=== PATIENT | female | born 1985 | race Caucasian/White ===

== ENCOUNTER → 2018-01-19 16:30 | Outpatient (CLI) | payer OTHER, SELFPAY ==
[2018-01-20 14:07] LABS: Chlamydia Trachomatis by PCR Negative (Negative); Neisserai gonorrhoeae by PCR Negative (Negative); Probe Check PASS; Sample Adequacy Control PASS; Specimen Processing Control PASS
== END ==
PROVIDERS: Visit Provider Obstetrics & Gynecology
DX: Z11.3 Encounter for screening for infections with a predominantly sexual mode of transmission (principal)
CPT/HCPCS: 87491; 87591

== ENCOUNTER → 2018-02-12 11:39 | Outpatient (CLI) | payer OTHER, SELFPAY ==
[2018-02-12 14:11] LABS: Absolute Lymphocyte Count 1.36 X10^3/ul (0.83-4.51); Absolute Neutrophil Count 3.1 X10^3/uL (2.0-7.7); Basophil# 0.01 X10^3/uL; Basophil% 0.2 % (0-1); Eosinophil# 0.05 X10^3/uL; Hematocrit 37.7 % (37-47); Hemoglobin 12.5 g/dl (12.0-15.0); Lymphocyte # 1.36 X10^3/ul (4.0); Lymphocyte % 28.2 % (19-41); Mean Corp Hgb Conc 33.2 g/gl (32-36); Mean Corpuscular Hgb 29.3 pg (27.0-32.0); Mean Corpuscular Volume 88.3 fL (81-99); Mean Platelet Vol. 11.4 fl (6.2-12.0); Monocyte# 0.29 X10^3/uL; Neutrophil # 3.11 X10^3/uL (2.7-7.7); Neutrophil % 64.6 % (47-70); POSITIVE COUNT NO; POSITIVE DIFFERENTIAL NO; POSITIVE MORPHOLOGY NO; Platelet Count 203 K/mm3 (150-450); RBC Distribution Width CV 12.5 % (11.6-14.6); RBC Distribution Width SD 39.6 fl (35.1-43.9); Red Blood Count 4.27 M/mm3 (4.2-5.4); White Blood Count 4.8 K/mm3 (4.4-11.0)
[2018-02-12 14:19] LABS: Color, Urine Yellow (Yellow); Glucose, Dipstick Normal (Normal); Ketone-Dipstick Negative (Negative); Leukocyte Esterase-Dipstick 25 /ul (Negative); Nitrite-Dipstick Negative (Negative); Occult Blood-Urine Negative /ul (Negative); Protein-Dipstick Negative (Negative); Urine Bilirubin Dipstick Negative (Negative); Urine Clarity Clear (Clear); Urine Urobilinogen Normal (Normal); Urine pH 6.5 (5.0 - 8.0)
[2018-02-12 14:43] LABS: Thyroid Stim Hormone (TSH) 0.54 uIU/mL (0.358-3.74)
[2018-02-12 15:12] LABS: HIV - WCH Non-Reactive (Nonreactive); Rubella IgG 44.4 IU/mL
[2018-02-13 09:18] LABS: HEPATITIS B SURFACE AG Negative (Negative); Hep C Antibodies <0.1 s/co ratio (0.0-0.9)
[2018-02-19 02:32] LABS: Prenatal RPR NONREACTIVE (NONREACTIVE)
--- OUTSIDE RECORDS SUMMARY | 2018-04-09 10:29 | XMS RPT_ITS ---
:1985 Author Organization OHIP Care Team Providers Name Role Phone Miguel Rowley Attending Unavailable Luana Beebe Attending Unavailable PROBLEMS PROBLEMS DATE TYPE CONDITION / CODE ATTENDING STATUS SOURCE 02/12/2018 Unknown Z34.81 - Encounter Luana Beebe Active [place] for supervision of Community other normal Hospital , first Repository trimester / Z34.81(ICD-10) 01/20/2018 Unknown Z11.3 - Encounter Miguel Rowley Active [place] for screening for Community infections with a Hospital [facility] Repository sexual mode of transmission / Z11.3(ICD-10) PROCEDURES PROCEDURES No Procedure Records FoundRESULTS RESULTS CBC W/DIFF, AUTOMATED Collected: 02/12/2018 Status: F Source[facility] [place] [facility] TYPE CODE TESTS RESULT OUT OF RANGE REFERENCE UNITS LAB L100.1000 4.4-11.0 K/mm3 Normal WBC 4.8 LAB L100.1200 4.2-5.4 M/mm3 Normal RBC 4.27 LAB L100.1300 12.0-15.0 g/dl Normal HGB 12.5 LAB L100.1400 37-47 % Normal HCT 37.7 LAB L100.1500 81-99 fL Normal MCV 88.3 LAB L100.1600 27.0-32.0 pg Normal MCH 29.3 LAB L100.1700 32-36 g/gl Normal MCHC 33.2 LAB L100.1810 11.6-14.6 % Normal RDW CV 12.5 LAB L100.1820 35.1-43.9 fl Normal RDW SD 39.6 LAB L100.1900 150-450 K/mm3 Normal PLT 203 LAB L100.2000 6.2-12.0 fl Normal MPV 11.4 LAB L100.2100 47-70 % Normal NEUT% 64.6 LAB L100.2200 19-41 % Normal LY% 28.2 LAB L100.2300 0-10 % Normal MONO% 6.0 LAB L100.2400 0-5 % Normal EO% 1.0 LAB L100.2500 0-1 % Normal BASO% 0.2 LAB L100.2550 0.0-0.9 % Normal IM GRAN % 0.000 Result Comment: IG% - Immature Granulocytes (promyelocytes, myelocytes and metamyelocytes) > 1% indicates that a LEFT SHIFT is Present. LAB L100.2620 2.0-7.7 X10 3/uL Normal Absolute Neut 3.1 LAB L100.2720 0.83-4.51 X10 3/ul Normal Absolute Lymph 1.36 Performed By: #### L100.0100 #### [facility] [address] [place] [address]. [place], [address] URINALYSIS, ROUTINE Collected: 02/12/2018 Status: F Source: [place] (DIPSTICK) 11:41 AM [facility] REPOSITORY Order Comment: How was Urine Obtained? Urine, Random TYPE CODE TESTS RESULT OUT OF RANGE REFERENCE UNITS LAB L400.3000 Yellow COLOR Normal Yellow LAB L400.3050 Clear Normal CLARITY Clear LAB L400.3200 Normal mg/dl Normal GLUCOSE, UR Normal LAB L400.3300 Negative mg/dL Normal BILIRUBIN URINE Negative LAB L400.3400 Negative mg/dl Normal KETONE UR Negative LAB L400.3465 1.002-1.030 Normal SP.GR. DIPSTX 1.010 LAB L400.3550 5.0 - 8.0 pH UR Normal 6.5 LAB L400.3600 Negative mg/dl PROT Normal DIPSTX Negative LAB L400.3700 Normal mg/dl Normal UROBILI Normal LAB L400.3750 Negative Normal NITRITE UR Negative LAB L400.3780 Negative /ul Normal OCCULT BLOOD-UR Negative LAB L400.3800 Negative /ul High LEUK 25 ESTERASE Performed By: #### L400.2010 #### [facility] [address] [place], [address] THYROID STIM HORMONE Collected: 02/12/2018 Status: F Source: [place] (TSH) 11:41 AM [facility] REPOSITORY TYPE CODE TESTS RESULT OUT OF RANGE REFERENCE UNITS LAB L501.9520 0.358-3.74 uIU/mL Normal TSH 0.54 Performed By: #### L501.9520 #### [facility] [address] [facility] [facility] [address] RUBELLA IGG Collected: 02/12/2018 Status: F Source: [place] 11:41 AM [facility] REPOSITORY TYPE CODE TESTS RESULT OUT OF RANGE REFERENCE UNITS LAB L509.4000 IU/mL Normal Rubella IgG 44.4 Result Comment: Antibody results Interpretation of Immune Status < 5 IU/ml Presumed Non-immune 5 - < 10 IU/ml Equivocal > or = 10 IU/ml Presumed Immune Performed By: #### L509.4000, L3890.6005 #### [facility] [address] [place], [address] HIV - [facility] Collected: 02/12/2018 Status: F Source: [place] 11:41 AM [facility] REPOSITORY TYPE CODE TESTS RESULT OUT OF RANGE REFERENCE UNITS LAB L3890.6005 Nonreactive Normal HIV - [facility] Non-Reactive Performed By: #### L509.4000, L3890.6005 #### [facility] [address] [place], [address] T AND S-NO Collected: 02/12/2018 Status: F Source: [place] CHARGE W/PNP 11:41 AM [facility] REPOSITORY Order Comment: Reason for Type AND Screen/Red Cells: Surgery? N TYPE CODE TESTS RESULT OUT OF RANGE REFERENCE UNITS LAB B10.0800 O Normal BLOOD POSITIVE TYPE GEL LAB B100.4050 Normal Ab SCREEN NEGATIVE GEL Performed By: #### B100.7550 #### [facility] [address] [place], [place], [id number] HEPATITIS B SURFACE Collected: 02/12/2018 Status: F Source: [place] AG 11:41 AM [facility] REPOSITORY TYPE CODE TESTS RESULT OUT OF RANGE REFERENCE UNITS LAB L3100.0400 Negative Normal HB Negative SURF AG Result Comment: Performed at: [facility] [id number] Taxicab Starter: Vic Rivera PhD, Phone: [phone] Performed By: #### L3100.0390, L3100.0625 #### [facility] (refer to report for specific site) refer to report for address and phone number HEPATITIS C ANTIBODIES Collected: 02/12/2018 Status: F Source: [place] 11:41 AM [facility] REPOSITORY TYPE CODE TESTS RESULT OUT OF RANGE REFERENCE UNITS LAB L3100.0650 0.0-0.9 s/co ratio Normal HEP C AB <0.1 Result Comment: Negative: < 0.8 Indeterminate: 0.8 - 0.9 Positive: > 0.9 The CDC recommends that a positive HCV antibody result be followed up with a HCV Nucleic Acid Amplification test (010513). Performed By: #### L3100.0390, L3100.0625 #### [facility] (refer to report for specific site) refer to report for address and phone number RPR Collected: 02/12/2018 Status: F Source: [place] 11:41 AM [facility] REPOSITORY TYPE CODE TESTS RESULT OUT OF REFERENCE UNITS RANGE LAB L700.5100 NONREACTIVE Normal RPR NONREACTIVE Performed By: #### L700.5100 #### [facility] [address] [place], [place], [address] CT/NG [facility] BY PCR Collected: 01/19/2018 Status: F Source: [place] 4:30 PM [facility] REPOSITORY TYPE CODE TESTS RESULT OUT OF RANGE REFERENCE UNITS LAB L8200.2100 Negative Normal Chlam Negative Trac PCR LAB L8200.2200 Negative Normal NG by Negative PCR Performed By: #### L8200.2000 #### [facility] [address] [place], [address] ALLERGIES ALLERGIES DATE TYPE / CODE NAME / CODE REACTION SEVERITY SOURCE 08/21/2016 Drug No Known Unknown [facility] Allergy/4160 Allergies/F00 Hospital 00100(SNOMED [id number](RXNOR Repository CT) M) ENCOUNTERS ENCOUNTERS ADMIT/DISCHARGE ACCOUNT ADMITTING ENCOUNTER LOCATION SOURCE NUMBER CLASS 02/12/2018 [id number] Ambulatory [facility] [place] 2 [facility] ing:WOBLAB Repository 01/19/2018 [id number] Ambulatory [place] Felda 6 [facility] ing:LABSPEC Repository PAYERS PAYERS ENCOUNTER GUARANTOR PAYER SUBSCRIBER SOURCE 02/12/2018 Lisa Primary Lisa Felda [id number] Insurance:[facility] [facility] [place]: [id number] [id number] Repository [address]Udt: (330) Date:9146-23-17PP [phone] () [address] [address]IM: 02/12/2018 Secondary NOT GIVENUNK Felda Insurance:SELF PAY [facility] Number: Effective Repository Date:2018-02-12 01/19/2018 Lisa Primary Lisa [place] [id number] [facility] ic Number: [id number] [id number] Repository [address]Kvv: (330) Date:5033-83-20JY [phone] () [address] [address]IF: 01/19/2018 Secondary NOT GIVENUNK Felda Insurance:SELF PAY [facility] Number: Effective Repository Date:2018-01-19
== END ==
PROVIDERS: Visit Provider Obstetrics & Gynecology
DX: Z34.81 Encounter for supervision of other normal pregnancy, first trimester (principal)
CPT/HCPCS: 36415; 81002; 84443; 85025; 86703; 86762; 86803; 87340

== ENCOUNTER → 2018-07-19 17:58 | Outpatient (CLI) | payer OTHER, SELFPAY ==
[2016-08-21 23:37] VITALS: BMI 29.9
== END ==
PROVIDERS: Referring Provider Obstetrics & Gynecology; Visit Provider Obstetrics & Gynecology
DX: Z36.85 Encounter for antenatal screening for Streptococcus B (principal)
CPT/HCPCS: 87081

== ENCOUNTER 2018-08-23 16:24 | Outpatient (CLI) | payer OTHER, SELFPAY ==
[2018-08-23 17:17] VITALS: BMI 30.4
--- NOTE | 2018-08-23 21:54 | OB.TRI.NOTE ---
History of Present Illness Was patient seen by the physician?: Yes Reason For Visit: R/O LABOR Date of Service: 08/23/18 Final VERONICA: 08/21/18 Final VERONICA Source: US <20 weeks Gestational age: 40 Weeks and 2 Days History of Present Illness: 40+ week intrauterine with contractions. Decided to come in as she thought she was in labor. Allergies No Known Allergies Allergy (Verified 08/23/18 17:19) NST - FHR Rate Baby A NST Reactive:: Yes FHR Category:: Category I Impression/Plan 40+ week intrauterine with false labor. Reactive nonstress test. No change in cervix after monitoring for several hours. Offered patient to stay for induction but she declines and will come back later this week for induction if she has not delivered by then. Patient lives about [place] hour away in [place].
== END 2018-08-23 18:15 | disposition home or self-care (01) ==
LOC: WPOUT 16:58 → WP 16:59
PROVIDERS: Referring Provider Obstetrics & Gynecology; Visit Provider Obstetrics & Gynecology
DX: O47.1 False labor at or after 37 completed weeks of gestation (principal); Z3A.40 40 weeks gestation of pregnancy
CPT/HCPCS: 59025; 59050; 99218; G0378

== ENCOUNTER 2018-08-28 23:50 | Inpatient (IN) | payer OTHER, SELFPAY ==
[2018-08-28 23:20] VITALS: BMI 29.3
[2018-08-28 23:46] LABS: ROM Internal Control Test YES-OK TO RESULT pt. (Internal QC)
[2018-08-28 23:47] LABS: ROM Patient Test POSITIVE (Negative)
[2018-08-29] MEDS: Lactated Ringers 1,000 ML 50 ML IV ×2 (00:10→01:30)
[2018-08-29 00:36] LABS: Absolute Lymphocyte Count 1.69 X10^3/ul (0.83-4.51); Absolute Neutrophil Count 4.3 X10^3/uL (2.0-7.7); Basophil# 0.01 X10^3/uL; Basophil% 0.2 % (0-1); Eosinophil# 0.05 X10^3/uL; Eosinophils% 0.8 % (0-5); Hematocrit 33.7 % (37-47); Hemoglobin 11.1 g/dl (12.0-15.0); Lymphocyte # 1.69 X10^3/ul (4.0); Lymphocyte % 25.5 % (19-41); Mean Corp Hgb Conc 32.9 g/gl (32-36); Mean Corpuscular Hgb 28.8 pg (27.0-32.0); Mean Corpuscular Volume 87.3 fL (81-99); Mean Platelet Vol. 12.6 fl (6.2-12.0); Monocyte# 0.57 X10^3/uL; Monocyte% 8.6 % (0-10); Neutrophil # 4.29 X10^3/uL (2.7-7.7); Neutrophil % 64.7 % (47-70); Platelet Count 110 K/mm3 (150-450); RBC Distribution Width SD 44.2 fl (35.1-43.9); Red Blood Count 3.86 M/mm3 (4.2-5.4); White Blood Count 6.6 K/mm3 (4.4-11.0)
[2018-08-29] MEDS: 0.9% Saline Lock 10 ML Syringe IV (00:36)
[2018-08-29] MEDS: Ondansetron 4 MG/2 ML Vial IV (00:36)
[2018-08-29 00:37] LABS: POSITIVE COUNT NO; POSITIVE DIFFERENTIAL NO; POSITIVE MORPHOLOGY NO
[2018-08-29] MEDS: fentaNYL-bupivacaine (epidural) 100 ML BAG EPIDURAL (01:32)
[2018-08-29] MEDS: Oxytocin 30 units/NS 500 ml 30 UNITS/500 ML IV.SOLN 334 UNITS IV (02:37)
--- NOTE | 2018-08-29 02:49 | HP.PCM_ITS ---
- Problem List (1) Active labor at term Status: Acute History Date of Admission: 08/29/18 Final VERONICA: 08/21/18 Final VERONICA Source: US <20 weeks Gestational age: 41 Weeks and 1 Days History of this : This is a 33 year-old, , at 41 weeks gestational age presents IAL with SROM clear fluid she denies any significant vaginal bleeding and admits good movement. She has had an uncomplicated . Allergies No Known Allergies Allergy (Verified 08/28/18 23:25) Home Medications: Home Medications Vits [Prenatabs FA] 1 tablet PO DAILY 03/21/15 Ferrous Sulfate 325 mg PO 08/23/18 Smoking Status: Never smoker Alcohol: None Number of Fetus(es): 1 Heart Tracin moderate variability reactive no decelerations category I tracing [place]: regular History Past Pregnancies: Past Pregnancies 2 previous term vaginal delivery 7 pounds 3 ounces and 7 pounds 6 ounces, epidural, vacuum delivery with second Labs: Mom's Labs & Results 08/28/18 08/29/18 08/29/18 23:25 00:10 00:10 WBC 6.6 RBC 3.86 L Hgb 11.1 L Hct 33.7 L MCV 87.3 MCH 28.8 MCHC 32.9 RDW 14.0 RDW Differential 44.2 H Plt Count 110 L MPV 12.6 H Immature Gran % (Auto) 0.200 Neut % (Auto) 64.7 Lymph % (Auto) 25.5 [place] % (Auto) 8.6 Eos % (Auto) 0.8 Baso % (Auto) 0.2 Absolute Neuts (auto) 4.3 Absolute Lymphs (auto) 1.69 Total Counted Not Reportable Vag Amniotic Fld Detect POSITIVE H Blood Type O POSITIVE Antibody Screen NEGATIVE Course Did the patient receive Yes care? Labs Blood Type: O RH: POSITIVE RPR/VDRL/Syphilis Nonreactive Rubella status Immune HbSAg Negative Date Done: 02/12/18 Chlamydia Negative Gonorrhea Negative HIV/AIDS Non-Reactive Group B Strep: Negative Current Obstetrical History Gestational Diabetes No Incompetent Cervix No Infertility No IUGR No Macrosomia No Hypertension/Pre-eclampsia No Placenta Previa/Abruption No PTL/PROM No Uterine anomaly No Oligohydramnios No Polyhydramnios No Multiple gestation No Past Medical History Asthma No Diabetes No Hypertension No Heart disease No Mitral valve prolapse No Neurologic/Seizure disorder/ No Migraines Kidney disease No Liver disease No Varicosities No Clotting disorders/Hx of DVT No Thyroid Dysfunction No Other medical diseases No Psychiatric disorders No Major trauma No Abnormal PAP smear No Sleep apnea No Mammogram in the last 2 years No Social History Marital Status: Alleged father Reji Hx Smoking No Smoking Status Never smoker Expected Delivery Method: Spontaneous Vaginal Review of Systems Constitutional: Denies: Fever, Malaise Eyes: Denies: Blurred vision, Vision Change HEENT: Denies: Head Aches, Visual Changes Cardiovascular: Denies: Chest Pain, Palpitations Respiratory: Denies: Cough, Shortness of Breath, Wheezing Gastrointestinal: Denies: Abdominal Pain, Diarrhea, Nausea, Vomiting Genitourinary: Denies: Dysuria, Hematuria Musculoskeletal: Denies: Joint Pain, Muscle pain Skin: Denies: Lesions, Rash Neurological: Denies: Blurred vision, Focal weakness, Headaches Psychiatric: Denies: Anxiety, Depression Endocrine: Denies: Heat/ Cold Intolerance Hematologic/ Lymphatic: Denies: Easy Bruising, Easy Bleeding Physical Exam General: Alert, Cooperative, No apparent distress HEENT: Atraumatic, Normocephalic. Negative for: Thyromegaly, Lymphadenopathy Cardiovascular: Regular rate Lungs: Normal air movement Abdomen: Soft, Non Tender, Gravid Neurological: Deep Tendon Reflexes 2+/4 and Symmetrical, Neuro grossly intact. Negative for: Clonus [employer] PRINT SHOP: Normal external genitalia. Negative for: Vulvar lesions Estimated gestational size: Appropriate for gestational size Presentation: Cephalic Cervix Dilation (cm): 4 Assessment/Plan All Active Problems Active labor at term (Acute) This is a 33 year-old, at 41 weeks gestational age resents in active labor with spontaneous rupture of membranes GBS negative, epidural for anesthesia, expectant management for vaginal
--- NOTE | 2018-08-29 02:49 | PCM.OPRPT ---
Problem List (1) Active labor at term Status: Acute Vaginal Delivery Maternal Presentation: Active Labor, Spontaneous Rupture of Membranes 33 yo ial srom clear fluid 41 weeks Amniotic Fluid Description: Clear Final VERONICA: 08/21/18 Gestational age: 41 Weeks and 1 Days Date of Procedure: 08/29/18 Pre-Operative Diagnosis: ial Post-Operative Diagnosis: same Surgery/ Procedure Performed: Spontaneous Vaginal Delivery Type of Anesthesia: Epidural Description of Procedure: Patient began pushing and delivered the head in the MAXIMILIAN presentation. The head was delivered atraumatically . The anterior and posterior shoulders delivered without complication followed by the rest of the and the infant was placed on the maternal abdomen. Delayed cord clamping was employed for approximately 60 seconds. Cord was clamped and cut and gentle traction was applied to the cord and the placenta delivered spontaneously immediately following it was noted to be intact with three-vessel cord but with a significant membranous insertion. The perineum and vagina were inspected and noted to have no laceration. EBL was 200 cc. Patient and tolerated delivery well. Presentation: MAXIMILIAN Placental Delivery Description: Spontaneous Placenta Disposition: [facility] Cord Vessel Description: 3 Vessels Cord Entanglement: None Estimated Blood Loss: 200 A gender: Male (1 minute): 9 (5 minute): 10 Episiotomy Description: None Laceration: None Medications given after delivery: IV Pitocin Complications: None
[2018-08-29] MEDS: Oxytocin 30 units/NS 500 ml 30 UNITS/500 ML IV.SOLN 167 UNITS IV (03:07)
[2018-08-29] MEDS: Naproxen 250 MG Tablet 500 MG PO ×2 (05:50→16:02)
--- NOTE | 2018-08-29 05:55 | NURSING ---
Epidural cath removed blue tip intact
[2018-08-29 07:43] VITALS: BP 111/68; PULSE 63; RESP 16; TEMP 36.6; O2SAT 99
[2018-08-29] MEDS: Acetaminophen 500 MG Tablet 1000 MG PO ×2 (11:31→19:36)
[2018-08-29 11:33] VITALS: BP 132/72; PULSE 77; RESP 16; TEMP 36.2; O2SAT 99
[2018-08-29 16:06] VITALS: BP 122/72; PULSE 68; RESP 16; TEMP 36.7; O2SAT 99
[2018-08-29 19:45] VITALS: BP 120/86; PULSE 72; RESP 16; TEMP 36.8; O2SAT 97
[2018-08-30] MEDS: Naproxen 250 MG Tablet 500 MG PO ×2 (00:18→09:51)
[2018-08-30 03:29] VITALS: BP 116/77; PULSE 75; RESP 16; TEMP 36.8
[2018-08-30 08:00] VITALS: BP 134/79; PULSE 90; RESP 16; TEMP 36.6
--- NOTE | 2018-08-30 11:03 | PCM.PN.OB ---
Patient Problems: Active and Suspected Problems Active labor at term (Acute) Subjective: doing well no complaints - Physical Exam General: Alert, Oriented x3 Vital Signs Temp Pulse Resp BP Pulse Ox 97.9 F 90 16 134/79 H 97 08/30/18 08:00 08/30/18 08:00 08/30/18 08:00 08/30/18 08:00 08/29/18 19:45 Oxygen Delivery Method Room Air Weight: 199 lb Body Mass Index (BMI) 29.3 Intake and Output for Last 24 Hours 08/28/18 08/29/18 08/30/18 23:59 23:59 23:59 Output Total 625 / 625 Balance -625 / -625 Medical Necessity - Tobacco Use Smoking Status: Never smoker Assessment/Plan All Active Problems Active labor at term (Acute) s/p PPD # 1 1. routine post delivery care 2. breast feeding- support given dc home
--- NOTE | 2018-08-30 11:05 | DCINST_ITS ---
Discharge Diet: No Restrictions Discharge Activity: Return to Normal Activity, May not drive while taking narcotic pain medications., May Shower May resume sexual activity in: 4-6 weeks Call your doctor if your incision/area has: Continuous Slow Oozing, Sudden Increased Bleeding, Increased Pain/ Swelling, Increased Redness, Foul Smelling Discharge Additional Instructions: If you experience any of the following, contact your healthcare provider. * Bleeding that soaks a pad every hour for 2 hours * Fever 100.4 or higher * Unrelieved incision or abdominal pain * Swelling, redness, discharge or bleeding from your incision or episiotomy site * Your incision begins to separate * Problems urinating (including inability to urinate or burning while urinating). * Visual changes * Severe headache * Flu-like symptoms * Pain or redness in one of both of your breasts * Pain, warmth, tenderness or swelling in your legs, especially the calf area * Frequent nausea and vomiting * Symptoms of depression or anxiety If you experience any of the following, call 911 or go to the nearest Emergency Room. * Chest pain * Problems breathing * Seizure activity * Partial or complete paralysis of a body part, slurred speech, weakness or drooping of the face, or a sudden inability to walk or hold your balance Allergies/Adverse Reactions: Allergies No Known Allergies Allergy (Verified 08/28/18 23:25) Medications to take at Discharge Vits [Prenatabs FA] 1 tablet PO DAILY 03/21/15 Ferrous Sulfate 325 mg PO 08/23/18 Please Follow Up With: Radha Abdi MD - [phone] When: Call to make an appointment with your doctor in 6 weeks. If you had elevated Blood pressure or 4th degree laceration you will need to be seen in 2 weeks. Test Results: Test results from this visit will be discussed in further detail at your follow- up appointment, if applicable.
--- NOTE | 2018-08-30 11:05 | PCM.DCVAG ---
Discharge Diet: No Restrictions Discharge Activity: Return to Normal Activity, May not drive while taking narcotic pain medications., May Shower May resume sexual activity in: 4-6 weeks Call your doctor if your incision/area has: Continuous Slow Oozing, Sudden Increased Bleeding, Increased Pain/ Swelling, Increased Redness, Foul Smelling Discharge Additional Instructions: If you experience any of the following, contact your healthcare provider. Bleeding that soaks a pad every hour for 2 hours Fever 100.4 or higher Unrelieved incision or abdominal pain Swelling, redness, discharge or bleeding from your incision or episiotomy site Your incision begins to separate Problems urinating (including inability to urinate or burning while urinating). Visual changes Severe headache Flu-like symptoms Pain or redness in one of both of your breasts Pain, warmth, tenderness or swelling in your legs, especially the calf area Frequent nausea and vomiting Symptoms of depression or anxiety If you experience any of the following, call 911 or go to the nearest Emergency Room. Chest pain Problems breathing Seizure activity Partial or complete paralysis of a body part, slurred speech, weakness or drooping of the face, or a sudden inability to walk or hold your balance Allergies/Adverse Reactions: Allergies No Known Allergies Allergy (Verified 08/28/18 23:25) Medications to take at Discharge Vits [Prenatabs FA] 1 tablet PO DAILY 03/21/15 Ferrous Sulfate 325 mg PO 08/23/18 Please Follow Up With: Radha Abdi MD - [phone] When: Call to make an appointment with your doctor in 6 weeks. If you had elevated Blood pressure or 4th degree laceration you will need to be seen in 2 weeks. Test Results: Test results from this visit will be discussed in further detail at your follow-up appointment, if applicable.
[2018-08-30 12:53] VITALS: BP 116/70; PULSE 70; RESP 16; TEMP 36.6
== END 2018-08-30 13:00 | disposition home or self-care (01) | DRG 807 ==
LOC: WPOUT 23:51
PROVIDERS: Admitting Provider Obstetrics & Gynecology; Referring Provider Obstetrics & Gynecology; Visit Provider Obstetrics & Gynecology
DX: O48.0 Post-term pregnancy (principal); Z37.0 Single live birth; Z3A.41 41 weeks gestation of pregnancy
CPT/HCPCS: 59025; 59050; 84112; 85025; 86850; 86900; 99218; J7120; A4216; G0378; J2405

== ENCOUNTER → 2018-10-11 14:00 | Outpatient (CLI) | payer OTHER, SELFPAY ==
[2018-10-14 15:47] LABS: HPV Reflexed? NOT INDICATED
== END ==
PROVIDERS: Visit Provider Obstetrics & Gynecology
DX: Z12.4 Encounter for screening for malignant neoplasm of cervix (principal)
CPT/HCPCS: 87624; 88175; G0145

== ENCOUNTER → 2019-10-28 15:15 | Outpatient (CLI) | payer OTHER, SELFPAY ==
--- NOTE | 2019-10-28 | LES_PTH ---
PATIENT: LANI STARR LOC: [facility] U#:[id number] AGE/SX: 39/F ROOM: RE10/28/[address]: Dr. Emeli Ponce MD : 1985 BED: DIS: SPEC #: [id number] RECD: 10/28/19 17:31 STATUS: [place] FILIPE #: [id number] RUSSEL: 10/28/19 00:[address]: Emeli Ponce DEPT: SURGICAL PATHOLOGY RECD BY: Bola Ford Tissues: Skin of leg, NOS Procedures: Surgery Specimen Level IV HEADER OPERATION: Skin lesion excision PRE-OP DIAGNOSIS: Skin lesions TISSUE SUBMITTED: Right thigh skin lesion MICROSCOPIC DIAGNOSIS Right thigh skin lesion, biopsy: Intradermal nevus extending up to the deep margin of the specimen. NGUYEN:heraclio 11/01/19 MICROSCOPIC DESCRIPTION Slides are reviewed. GROSS DESCRIPTION Received in fixative is one container labeled with the patient's name and designated right thigh. The specimen consists of a piece of fuentes-brown skin measuring 0.7 x 0.5 x 0.3 cm. The specimen is inked and submitted entirely in one cassette. It will be sectioned at the time of embedding. / NGUYEN:heraclio 10/31/19 TC:1 CPT: 61680
== END ==
PROVIDERS: PCP Family Medicine; Referring Provider Family Medicine; Visit Provider Family Medicine
DX: L98.9 Disorder of the skin and subcutaneous tissue, unspecified (principal)
CPT/HCPCS: 88305

== ENCOUNTER → 2019-11-22 15:53 | Outpatient (CLI) | payer OTHER, SELFPAY ==
--- NOTE | 2019-11-22 15:58 | US_ITS ---
STUDY: ULTRASOUND OF THE FEMALE PELVIS - COMPLETE REASON FOR EXAM: Female, 34 years old. PELVIC PAIN BILAT LMP: 06/20/2019 TECHNIQUE: Transabdominal and Transvaginal TECHNICAL QUALITY: Adequate. COMPARISON: None. FINDINGS: The uterus is anteverted and is in a midline position. The uterus measures 9.1 x 5.8 x 3.0 cm. Normal uterine cervix. The endometrium measures 7 mm in thickness, and is hyperechoic. There is no demonstrated endometrial mass. There is no demonstrated myometrial mass. I.U.D. - The patient does not have an I.U.D. The right ovary is visualized. The right ovary measures 2.6 x 1.9 x 1.9 cm. 1.3 cm solid appearing mass, possibly a fibroma or involuting cyst. There is no visualized right adnexal mass or complex lesion. There is normal arterial and normal venous vascularity. The left ovary is visualized. The left ovary measures 2.8 x 2.6 x 1.3 cm. There is no left ovarian cyst or ovarian mass. There is no visualized left adnexal mass or complex lesion. There is normal arterial and normal venous vascularity. There is no fluid in the cul-de-sac. The pre void volume of the bladder was 791 ml. US/Pelvic (Non ) IMPRESSION: Within normal limits. Electronically Signed: Duane Carbone MD at 22:25 EDT , Service support ,
--- NOTE | 2019-11-22 16:15 | US_ITS ---
STUDY: ULTRASOUND OF THE FEMALE PELVIS - COMPLETE REASON FOR EXAM: Female, 34 years old. PELVIC PAIN BILAT LMP: 06/20/2019 TECHNIQUE: Transabdominal and Transvaginal TECHNICAL QUALITY: Adequate. COMPARISON: None. FINDINGS: The uterus is anteverted and is in a midline position. The uterus measures 9.1 x 5.8 x 3.0 cm. Normal uterine cervix. The endometrium measures 7 mm in thickness, and is hyperechoic. There is no demonstrated endometrial mass. There is no demonstrated myometrial mass. I.U.D. - The patient does not have an I.U.D. The right ovary is visualized. The right ovary measures 2.6 x 1.9 x 1.9 cm. 1.3 cm solid appearing mass, possibly a fibroma or involuting cyst. There is no visualized right adnexal mass or complex lesion. There is normal arterial and normal venous vascularity. The left ovary is visualized. The left ovary measures 2.8 x 2.6 x 1.3 cm. There is no left ovarian cyst or ovarian mass. There is no visualized left adnexal mass or complex lesion. There is normal arterial and normal venous vascularity. There is no fluid in the cul-de-sac. The pre void volume of the bladder was 791 ml. US/Transvaginal Non- IMPRESSION: Within normal limits. Electronically Signed: Duane Carbone MD at 22:25 EDT , Service support ,
== END ==
PROVIDERS: PCP Family Medicine; Referring Provider Family Medicine; Visit Provider Family Medicine
DX: R10.9 Unspecified abdominal pain (principal)
CPT/HCPCS: 76830; 76856; 93976

== ENCOUNTER → 2020-02-14 15:29 | Outpatient (CLI) | payer OTHER, SELFPAY ==
[2020-02-14 17:35] LABS: Absolute Lymphocyte Count 1.72 X10^3/uL (0.83-4.51); Absolute Neutrophil Count 3.9 X10^3/uL (2.0-7.7); Basophil# 0.03 X10^3/uL; Basophil% 0.5 % (0-1); Eosinophil# 0.29 X10^3/uL; Eosinophils% 4.6 % (0-5); Hematocrit 39.3 % (37-47); Hemoglobin 12.7 g/dL (12.0-15.0); Lymphocyte # 1.72 X10^3/ul (4.0); Lymphocyte % 27.2 % (19-41); Mean Corp Hgb Conc 32.3 g/dL (32-36); Mean Corpuscular Volume 89.7 fL (81-99); Mean Platelet Vol. 11.8 fl (6.2-12.0); Monocyte# 0.41 X10^3/uL; Monocyte% 6.5 % (0-10); NRBC Flagged by Analyzer 0 % (0-5); Neutrophil # 3.85 X10^3/uL (2.7-7.7); Neutrophil % 60.9 % (47-70); Platelet Count 228 K/mm3 (150-450); RBC Distribution Width CV 12.1 % (11.6-14.6); RBC Distribution Width SD 39.4 fl (35.1-43.9); Red Blood Count 4.38 M/mm3 (4.2-5.4); White Blood Count 6.3 K/mm3 (4.4-11.0)
[2020-02-15 08:45] LABS: HIV - WCH Non-Reactive (Nonreactive); Hepatitis B Surface Antigen Non-Reactive (Nonreactive); Hepatitis C Antibody Non-Reactive (Nonreactive); Rubella IgG Reactive (Nonreactive)
[2020-02-16 02:17] LABS: Prenatal RPR NONREACTIVE (NONREACTIVE)
[2020-02-18 03:07] LABS: Chlamydia By Nucleic Acid AMP Negative (Negative)
[2020-02-20 04:28] LABS: Gonococcus By Nucleic Acid AMP Negative (Negative)
[2020-02-20 04:31] LABS: HPV APTIMA, High Risk Negative (Negative)
[2020-02-20 09:41] LABS: HPV Reflexed? YES, CHARGE PATIENT
== END ==
PROVIDERS: PCP Family Medicine; Visit Provider Obstetrics & Gynecology
DX: Z34.81 Encounter for supervision of other normal pregnancy, first trimester (principal); Z12.4 Encounter for screening for malignant neoplasm of cervix; Z11.3 Encounter for screening for infections with a predominantly sexual mode of transmission
CPT/HCPCS: 36415; 85025; 86703; 86762; 86803; 87086; 87340; 87491; 87591; 87624; 88175; G0145

== ENCOUNTER → 2020-07-03 09:10 | Outpatient (CLI) | payer OTHER, SELFPAY ==
[2020-07-03 10:56] LABS: Hematocrit 34.8 % (37-47); Hemoglobin 11.1 g/dL (12.0-15.0); Mean Corp Hgb Conc 31.9 g/dL (32-36); Mean Corpuscular Hgb 29.4 pg (27.0-32.0); Mean Corpuscular Volume 92.3 fL (81-99); Mean Platelet Vol. 11.2 fl (6.2-12.0); Platelet Count 149 K/mm3 (150-450); RBC Distribution Width CV 13.3 % (11.6-14.6); Red Blood Count 3.77 M/mm3 (4.2-5.4); White Blood Count 6.1 K/mm3 (4.4-11.0)
[2020-07-03 11:03] LABS: Glucose Challenge Gest 1H 50g 68 mg/dL (70-140)
== END ==
PROVIDERS: PCP Family Medicine; Visit Provider Student in an Organized Health Care Education/Training Program
DX: Z34.82 Encounter for supervision of other normal pregnancy, second trimester (principal)
CPT/HCPCS: 36415; 82950; 85027

== ENCOUNTER → 2020-09-05 09:23 | Outpatient (CLI) | payer OTHER, SELFPAY | PROVIDERS: PCP Family Medicine; Visit Provider Obstetrics & Gynecology | DX: Z36.85 Encounter for antenatal screening for Streptococcus B (principal) | CPT/HCPCS: 87081 ==

== ENCOUNTER 2020-09-29 06:55 | Inpatient (IN) | payer OTHER, SELFPAY ==
[2020-09-29] VITALS (46 sets, daily range): BP systolic 104–122; BP diastolic 53–81; PULSE 60–245; RESP 18; TEMP 36.3–36.4; O2SAT 81–100; BMI 31.0
[2020-09-29] MEDS: Lactated Ringers 1,000 ML 50 ML IV (07:10)
[2020-09-29 07:32] LABS: Absolute Lymphocyte Count 1.51 X10^3/uL (0.83-4.51); Absolute Neutrophil Count 4.5 X10^3/uL (2.0-7.7); Basophil# 0.03 X10^3/uL; Basophil% 0.5 % (0-1); Eosinophil# 0.14 X10^3/uL; Eosinophils% 2.1 % (0-5); Hematocrit 34.1 % (37-47); Hemoglobin 10.8 g/dL (12.0-15.0); Lymphocyte # 1.51 X10^3/ul (0.83-4.51); Lymphocyte % 22.7 % (19-41); Mean Corp Hgb Conc 31.7 g/dL (32-36); Mean Corpuscular Hgb 28.1 pg (27.0-32.0); Mean Corpuscular Volume 88.8 fL (81-99); Mean Platelet Vol. 11.3 fl (6.2-12.0); Monocyte# 0.47 X10^3/uL; Monocyte% 7.1 % (0-10); NRBC Flagged by Analyzer 0 % (0-5); Neutrophil # 4.46 X10^3/uL (2.7-7.7); Platelet Count 126 K/mm3 (150-450); RBC Distribution Width CV 13.1 % (11.6-14.6); RBC Distribution Width SD 42.3 fl (35.1-43.9); Red Blood Count 3.84 M/mm3 (4.2-5.4); White Blood Count 6.7 K/mm3 (4.4-11.0)
--- NOTE | 2020-09-29 09:11 | PCM.HP.OB ---
HPI - General General Date of Admission: 09/29/20 HPI Narrative LANI WISE, is a 35 F who presents with c/o contractions x 2 days. Maternal Data Information VERONICA Calculator Estimated Delivery Date Method Current WG Current Estimate 10/02/20 Ultrasound #1 39w 4d PFSH PFSH Medical History (Updated 09/29/20 @ 09:[address] Grace Love MD) Patient denies medical problems Home Medications vit,[id number] [Prenatabs FA] 1 tab PO DAILY 03/21/15 [History Last Taken 09/27/20] Allergy/AdvReac Type Severity Reaction Status Date / Time No Known Allergies Allergy Verified 09/29/20 04:20 Family History Father Hypertension Grandfather Cancer Heart disease Diabetes Grandmother Cancer Breast cancer Surgical History (Updated 09/29/20 @ 09:[address] Grace Love MD) [place] teeth removed Social History Smoking Status: Never smoker History 4 Elective abortions 0 Hx Para 3 Spontaneous abortions 0 Hx # Term Pregnancies 3 Ectopic pregnancies 0 Hx # Pregnancies 0 Multiple births 0 # of living children 3 Past Pregnancies Del. Date Name GA/Weeks Outcome Route Bth Weight Gen Labor Lgth Anesthesia Del Locatn Provider FOB 03/21/15 Brock 40 live - full term 7lb3oz Female 9 epidural [place] Abiel Szymanski 08/22/16 Wall 40 live - full term vacuum 7lb6oz Male 20 epidural [place] Abiel Szymanski 08/29/18 Patel 41 live - full term 7lb Male 6 epidural [place] Jin Szymanski NST FHR Rate Baby A Baseline: 140 Variability:: Moderate Accelerations:: 15 x 15 Decelerations:: None NST Reactive:: Yes FHR Category:: Category I Uterine Activity:: 0-1/10 Vital Signs Vital Signs Vital Signs: 09/29/20 04:15 09/29/20 05:42 09/29/20 05:58 Temperature 97.4 F L Temperature Source Temporal Pulse Rate 77 90 245 H Blood Pressure 122/79 H BP Systolic 122 BP Diastolic 79 Pulse Ox 98 98 81 09/29/20 06:30 09/29/20 07:23 09/29/20 07:24 Temperature 97.5 F L Temperature Source Pulse Rate 78 82 82 Blood Pressure 116/75 109/66 BP Systolic 116 109 BP Diastolic 75 66 Pulse Ox 97 97 09/29/20 08:33 Temperature 97.4 F L Temperature Source Temporal Pulse Rate 79 Blood Pressure 113/74 BP Systolic 113 BP Diastolic 74 Pulse Ox 98 Weight Weight: 92.533 kg Body Mass Index (BMI) 31.0 Physical Exam Const alert, oriented x3 and no apparent distress HEENT normocephalic Resp normal respiratory effort, normal air movement and clear to auscultation bilaterally Cardio regular rate and regular rhythm GI normal to inspection, nondistended, normoactive bowel sounds, soft to palpation, non-tender and non-distended Inspection: gravid Narrative: /-3 Labs Labs Labs: Blood Type O POSITIVE Antibody Screen NEGATIVE Hct 34.1 % (37-47) L Hgb 10.8 g/dL (12.0-15.0) L Rubella IgG Antibody Reactive (Nonreactive) Hep Bs Antigen Non-Reactive (Nonreactive) Neisseria gonorrhoeae DNA (TIFFANY) Negative (Negative) HIV 1&2 Antibody Non-Reactive (Nonreactive) Glucose 1 Hr 50 gm 68 mg/dL (70-140) L Rhogam given: No Miscellaneous Test . Chlamydia 02/14/20 NEGATIVE ACOG ANTEPARTUM RECORD - HISTORY AND PHYSICAL (09/29/2020) Name: LANI WISE History of this : This is a 35 year old [id number] presents at 39 wks + 4 days gestation. OB Physician: Miguel Rowley MD [facility]'s Physician: Jose Donis.................................................................... : 1985 Age: 35 [address]: [address] [place] [address] Phone: H) [phone] (O) [phone] Insurance Carrier: [employer] [id number] Emergency Contact: STEPHON WISE/SPOUSE [phone] ...................................................................... Final VERONICA: 10/02/20 By Ultrasound: 9 weeks 2 days PARITY: (G-Total Pregnancies P-Fullterm,Premature,Induced AB,Spont AB, Ectopics, Multiple,Living) VERONICA CONFIRMATION: By LMP: 12/27/19 Initial Exam: 10/02/20 By First Ultrasound Exam: 10/06/20 Final VERONICA: 10/02/20 OB PROBLEM LIST: Declines carrier and genetic screening Lives in Day Plans epidural ALLERGIES: NKDA MEDICATIONS: 28 mg iron-800 mcg tablet One pill by mouth once a day SOCIAL HISTORY: Smoking - Never Alcohol Use - denies drinking Diet - moderate, balanced diet Lifestyle - moderate stress lifestyle and Exercise - minimal Employer - [employer] Job Description - Kindergarten Illicit Drug Use - denies use of street drugs Sexual Activity - Residence - lives with Place of - [place], [place] Hours Worked - 50 hours per week Spouse-Sig Other Name - Stephon Wise Spouse-Sig Other Occupation - [employer] Spouse-Sig Other Phone No - [phone] Children Name(s) - Brock(16), Duke (17), Jorge ('19) PRIOR DELIVERY HISTORY DEL DATE GEST LAB WT LB WT OZ TYPE ANES LABOR TX 06 Mar 31 40 9 7 3 Vag Epidural No Aug 30 40 20 7 6 Vacuu Epidural No Sep 01 41 6 7 0 Vag Epidural No ANTEPARTUM FLOW CHART VISIT GE RTC FU F F AZ U U DATE WK MD WKS HT PN HR M SS BP ED WT AZ GL D EF ST __ ____ ___ __ __ ___ __ __ __ ___ __ __ __ ___ __ 14 Sep JM 1 39 V + + 122/72 sl 205 tr - Sep 38 JM 1 38 V + + 122/80 0 205 ne ne 29 Rashaad 37 CM 1 37 V + + 118/70 0 204 ne ne 1 40 -3 22 Aug 36 JMW 1 36 + + 108/68 sl 204 tr - ft 50 -2 08 Aug 34 JMW 2 34 + + 128/72 sl 202 - - July JMW 2 32 + + 112/64 0 206 - - August 11 JMW 3 29 + + 118/64 sl 201 tr - 20 Jun 27 CM 2 27 + + 118/68 sl 204 ne ne Jun 04 JMW 4 22 - + + 110/68 0 201 - - May 04 JMW 4 19 - on + 104/70 0 196 - - Mar 28 JMW 6 + ? 104/74 0 191 - - Feb 21 JMW 4 U+ US 110/64 0 188 - - ANTEPARTUM NOTE(S): Sep 26 2020: Ctxs-mild, Low Pressure Sep 18 2020: Sep 11 2020: Sep 04 2020: GBS Today and LARC form signed Aug 21 2020: Ctxs-occas, Round Ligament Pains, Aug 07 2020: Doing Well Jul 17 2020: Doing Well Jul 03 2020: GCT today Jun 04 2020: occasional round lig pain May 11 2020: burning pain in RLQ and LLQ Mar 27 2020: Nausea better/fatigue periodically, Declines AFP Mar 01 2020: nausea, fatigue COMPREHENSIVE ANTEPARTUM NOTE(S): Sep 26 2020: 39 weeks, educated on induction of labor at 41 weeks. Will discuss scheduling next visit. Sep 18 2020: Corinne is here for PNV. Declines cervix check today. Feeling well with good FM. Having occ BH ctx only. No edema present. Urine neg/neg. LSS Sep 18 2020: 38wk, no complaints. Sep 11 2020: Natalie is here for PNV. Having only occ BH ctx. No LOF. Would like cervix check today. Having good FM. No edema noted. Phone number given to pre-register at [facility]. Urine neg/neg. LSS Sep 11 2020: 37/0w visit. GBS neg. F/u 1w. CM Sep 11 2020: H taken to OB. tkg Jul 03 2020: Lani is here for PNV. Having GCT/labs today. Expresses no concerns today. Having some slight edema in hands only. Good FM. Urine neg/neg. LSS Jul 03 2020: 27/0w visit. GTT done today. Discussed TDap. F/u 2w. CM Jun 04 2020: Lani is here for a PNV. Good FM. No edema present. No concerns expressed at this time. Still having occasional RLQ and LLQ pain. Jun 04 2020: Lani is given glucola with instructions. Tdap information provided and encouraged. LMT Jun 04 2020: 22wk, no complaints. For 1hr GTT next visit. May 11 2020: Lani is here for a PNV with FOB. Feeling FM, states she hasn't been feeling as much as her last . US reveals anterior placenta. No edema present. Reports burning pain in RLQ and LLQ occasionally. Sometimes notices it more when she has to urinate. Denies burning with urination. May 11 2020: 19wk, Anatomy u/s today wnl. 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 Pt leaning towards not getting the vaccine. LAURA Eliel 8 2021: TELEHEALTH NOB VISIT, 30 MINUTE DURATION. Lani is a is a 34 year old with an VERONICA of 10/02/2020, current GA is 12 w 3 d. She resides with her and their three children. Past history updated. She plans to deliver at [facility] with an epidural, and she will breastfeed. Lani is an established patient with this practice, and she is aware office practice patterns; as well as jules Mar 01 2020: Lani is here for a PNV/ US with SO. Reports mild fatigue and nausea. Possibly interested in OTC medication for nausea. Denies spotting, cramping and other concerns. MK REVIEW OF SYSTEMS: GENERAL - Denies fever, or chills SKIN - Denies rash, new skin lesions, or change in moles EYES - Denies blurred vision, or change in visual acuity EARS - Denies ear pain, or difficulty hearing NOSE - Denies nasal congestion, discharge, or bleeding MOUTH - Denies sore throat, or difficulty swallowing NECK - Denies pain or swelling RESPIRATORY - Denies shortness of breath, cough, wheezing CARDIOVASCULAR - Denies palpitations, chest pain, orthopnea, PND, peripheral edema, syncope or claudication GASTROINTESTINAL - Denies nausea, vomiting, diarrhea, constipation, Denies abdominal pain, melena and or bright red blood GENITOURINARY - Denies dysuria, frequency of urination, urgency, or hesitancy MUSCULOSKELETAL - Denies joint or muscle pain, or back pain NEUROLOGICAL - Denies localized numbness, weakness, or tingling PSYCHIATRIC - Denies depression, anxiety, substance abuse or suicide attempts ENDOCRINE - Denies heat or cold intolerance, weight loss or gain, increasing thirst HEMATO-IMMUNOLOGIC - Denies easy bruising, bleeding, oral ulcerations or recurrent infections GENETICS SCREENING: Age 35+ years: No Thalassemia: No Neural Tube Defect: No Down Syndrome: No LAURA-SACHS: No Sickle Cell Disease: No Hemophilia: No Musc. Dystrophy: No Cystic Fibrosis: No-declines screening [place] Chorea: No Mental Retardation: No Fragile X: No Other genetic: No Other defects: No SABs/still births: No Drugs since LMP: No INFECTION HISTORY: High risk AIDS: No High risk Hepatitis: No Exposed to TB: No Exposed to Herpes: No Rash/viral illness since LMP: No History of STD: No MENSTRUAL HISTORY: *Menses Amount/Duration: normal amountMenarche (Age Onset): 17* Assessment & Plan (1) 39 weeks gestation of : PLAN: Admit for augmentation Discussed with pt r/b/i/a pitocin, pt desires to proceed Cat I FHR Maternal and statuses reassuring
[2020-09-29] MEDS: Oxytocin 30 units/NS 500 ml 30 UNITS/500 ML IV.SOLN IV (09:14)
[2020-09-29] MEDS: Lactated Ringers 500 ML 999 ML IV (10:53)
[2020-09-29] MEDS: fentaNYL-bupivacaine (epidural) 100 ML BAG EPIDURAL (11:43)
[2020-09-29] MEDS: Mag Hydrox/Al Hydrox/Simeth 30 ML UDC PO (11:57)
--- NOTE | 2020-09-29 12:51 | PCM.PN.OB ---
Subjective Subjective Comfortable with epidural. Objective Data Objective Data Vital Signs: Vital Signs Temp Pulse BP Pulse Ox 97.6 F L 74 113/74 98 09/29/20 12:07 09/29/20 12:38 09/29/20 12:38 09/29/20 12:03 Weight: 92.533 kg Body Mass Index (BMI) 31.0 Intake & Output: Intake and Output for Last 24 Hours 09/27/20 09/28/20 09/29/20 23:59 23:59 23:59 Intake Total 1189.56 / 1189.56 Output Total 700 / 700 Balance 489.56 / 489.56 Lab / Micro Data Result Diagrams: 09/29/20 07:10 Labs: Laboratory Results - last 24 hr 09/29/20 07:10: WBC 6.7, RBC 3.84 L, Hgb 10.8 L, Hct 34.1 L, MCV 88.8, MCH 28.1, MCHC 31.7 L, RDW Std Deviation 42.3, RDW Coeff of Oscar 13.1, Plt Count 126 L, MPV 11.3, Immature Gran % (Auto) 0.600, Neut % (Auto) 67.0, Lymph % (Auto) 22.7, [place] % (Auto) 7.1, Eos % (Auto) 2.1, Baso % (Auto) 0.5, Absolute Neuts (auto) 4.5, Absolute Lymphs (auto) 1.51, Nucleated RBC % 0 09/29/20 07:10: Blood Type O POSITIVE, Antibody Screen NEGATIVE Micro: Microbiology 09/29/20 07:10 Mucosa - Nose SARS-CoV-2 Antigen (Rapid) - Final Physical Exam Narrative GEN - NAD, AAO x3 FHR 130, moderate variability, + accelerations, +variable deceleration TOCO 4/10 min SVE 7/80/-1, soft, midposition Assessment & Plan (1) 39 weeks gestation of : COMMENT: 35yo @ 39 4/7 weeks gestation in labor, Cat II FHR PLAN: -Amniotomy performed with clear fluid -Continue pitocin as tolerated by mother and fetus
[2020-09-29] MEDS: Oxytocin 30 units/NS 500 ml 30 UNITS/500 ML IV.SOLN 334 UNITS IV (13:20)
--- NOTE | 2020-09-29 13:32 | EX.PCM.OBRPT ---
Assessment & Plan (1) (spontaneous vaginal delivery): Maternal Data Information VERONICA Calculator Estimated Delivery Date Method Current WG Current Estimate 10/02/20 Ultrasound #1 39w 4d Vaginal Delivery Maternal Presentation Maternal Presentation: Latent labor Type of Induction: - (Pitocin augmentation) Operative Information Date of Procedure: 09/29/20 Pre-Operative Diagnosis: 39-4/7 weeks gestation Post-Operative Diagnosis: 39-4/7 weeks gestation Surgery / Procedure Performed: Vacuum Assisted Vaginal Delivery Type of Anesthesia: Epidural Anesthesiologist: Praveen Alcantara Drain: Hoffmann to straight drain Estimated Blood Loss: 100 mL Time of Delivery: 01:15 Findings Description of Procedure: Arrived to room and patient fully dilated, +3 station. She pushed to deliver a vigorous male in OA over an intact perineum. was placed on the maternal abdomen and further attended by nursery personnel. The cord was doubly clamped and cut after approximately 4 minutes of life. Cord blood was obtained. The placenta delivered spontaneously and appeared intact on inspection. Presentation: Vertex Amniotic Membrane Rupture Type: Artificial Time of Membrane Rupture: 12:45 PM Amniotic Fluid Description: Clear Placental Delivery Description: Spontaneous Placenta Disposition: [facility] Cord Vessel Description: 3 Vessels Cord Entanglement: None Infant A Gender: Male (1 minute): 8 (5 minute): 9 Delayed Cord Clamping: Yes Post Vaginal Delivery Medications Given After Delivery: IV Pitocin Episiotomy Description: None Laceration: None Complication Complications: None
[2020-09-29] MEDS: Senna/Docusate Sodium 1 Tablet PO (14:33)
[2020-09-29] MEDS: Ibuprofen 600 MG Tablet PO (14:33)
[2020-09-29] MEDS: Acetaminophen 500 MG Tablet 1000 MG PO (19:16)
[2020-09-30] VITALS (7 sets, daily range): BP systolic 109–125; BP diastolic 66–74; PULSE 75–81; RESP 16–18; TEMP 36.4–36.6; O2SAT 98
[2020-09-30] MEDS: Ibuprofen 600 MG Tablet PO ×2 (00:50→13:00)
[2020-09-30] MEDS: Acetaminophen 500 MG Tablet 1000 MG PO (04:51)
--- NOTE | 2020-09-30 08:20 | PCM.DC ---
Discharge Instructions Diet Discharge Diet: No restrictions Activity Discharge Activity: Return to Normal Activity May resume sexual activity in: 4-6 weeks Lifting Restrictions: 20lb Dressing / Incision Call your doctor if you observe: Fever of 101 or Higher, Using more than 1 pad per hour, Shortness of breath, Chest pain, Calf discomfort, Uncontrolled pain and - (Persistent or severe headache) Follow Up Care Please Follow Up With: Miguel Rowley MD When: 3 weeks for telehealth follow up 6 weeks for visit Test Results: Test results from this visit will be discussed in further detail at your follow-up appointment, if applicable. Discharge Plan Admission Admit Date/Time: 09/29/20 06:55 Primary Reason for Your Visit: Vaginal delivery Attending Provider: Grace Mesa Primary Care Provider: Emeli Ponce Instructions Patient Instructions: After a Vaginal , Understanding Depression Discharge Orders/Prescriptions Prescriptions: New ibuprofen 800 mg tablet 800 mg PO Q8H PRN (Reason: pain) Qty: 30 RF: 0 Continued Prenatabs FA 1 TABLET tablet 1 tab PO DAILY RF: 0 Referrals / Follow Up: Emeli Ponce MD [Primary Care Provider] -
--- NOTE | 2020-09-30 08:41 | PCM.PN.BLA ---
Progress Note Visited room. Patient in shower. Will attempt to round later this morning.
== END 2020-09-30 15:25 | disposition home or self-care (01) | DRG 807 ==
LOC: WPOUT 06:58 → WP 06:58
PROVIDERS: Admitting Provider Obstetrics & Gynecology; PCP Family Medicine; Visit Provider Obstetrics & Gynecology
DX: O80 Encounter for full-term uncomplicated delivery (principal); Z37.0 Single live birth; Z3A.39 39 weeks gestation of pregnancy; Z82.49 Family history of ischemic heart disease and other diseases of the circulatory system; Z85.6 Personal history of leukemia
CPT/HCPCS: 59025; 59050; 85025; 86850; 86900; 86901; 87426; 99218; J7120; G0378

== ENCOUNTER → 2021-12-05 | Outpatient (CLI) | payer OTHER, SELFPAY ==
[2021-12-12 16:17] LABS: HPV APTIMA, High Risk Negative (Negative)
== END | disposition home or self-care (01) ==
LOC: LABSPEC 14:00
PROVIDERS: PCP Family Medicine; Visit Provider Obstetrics & Gynecology
DX: Z12.4 Encounter for screening for malignant neoplasm of cervix (principal)
CPT/HCPCS: 87624; 88175; G0145

== ENCOUNTER → 2022-06-19 | Outpatient (CLI) | payer OTHER, SELFPAY ==
[2022-06-20 22:06] LABS: Chlamydia By Nucleic Acid AMP Negative (Negative)
[2022-06-21 14:15] LABS: Gonococcus By Nucleic Acid AMP Negative (Negative)
== END | disposition home or self-care (01) ==
LOC: LABSPEC 10:34
PROVIDERS: PCP Family Medicine; Referring Provider Obstetrics & Gynecology; Visit Provider Obstetrics & Gynecology
DX: O09.90 Supervision of high risk pregnancy, unspecified, unspecified trimester (principal); Z3A.00 Weeks of gestation of pregnancy not specified
CPT/HCPCS: 87086; 87088; 87491; 87591

== ENCOUNTER → 2022-07-09 | Outpatient (CLI) | payer OTHER, SELFPAY ==
--- NOTE | 2022-07-09 12:58 | US_ITS ---
STUDY: FIRST TRIMESTER OBSTETRICAL ULTRASOUND REASON FOR EXAM: Female, 37 years old dating LMP: May 08, 2022. TECHNIQUE: Transvaginal TECHNICAL QUALITY: Adequate. PRIOR ULTRASOUND: None. FINDINGS: There is visualization of a single gestational sac in a normal intrauterine position. The mean sac diameter (MSD) measures 3.69 cm, indicating an estimated gestational age (EGA) of 9 weeks, 0 days. The gestational sac shape is within normal limits. There is a visualized yolk sac. The yolk sac measures 4.5 mm. The placenta is non-visualized. Small subchorionic hematoma. There is visualization of a live embryo. The crown-rump length (CRL) measures 2.05 cm, indicating an estimated gestational age (EGA) of 8 weeks, 4 days. There is demonstrated cardiac activity with a heart rate of 163 bpm. The estimated gestation age (EGA) by LMP is 8 weeks, 6 days. The estimated date of delivery (VERONICA) by LMP is February 12, 2023. The estimated gestation age (EGA) by US is 8 weeks, 6 days. The estimated date of delivery (VERONICA) by US is February 12, 2023. The uterus measures 9.4 cm x 6.7 cm x 4.7 cm. There is no demonstrated uterine fibroid. The cervix is closed. The right ovary measures 3.2 cm x 4.5 cm x 2.6 cm. There is a 1.7 cm x 1.8 cm x 2.1 cm cyst in the right ovary. There is no visualized right adnexal mass or complex lesion. The left ovary measures 2.5 cm x 2 cm by 1.4 cm.. There is no left ovarian cyst. There is no visualized left adnexal mass or complex lesion. There is no fluid in the cul de sac. US/Transvaginal w/Preg US IMPRESSION: Single live intrauterine gestation with a mean gestational age of 8 weeks and 6 days. Small right ovarian cyst. Small subchorionic hemorrhage. Electronically Signed: Modesto Huizar MD at 15:36 EDT ,
== END | disposition home or self-care (01) ==
PROVIDERS: PCP Family Medicine; Referring Provider Obstetrics & Gynecology; Visit Provider Obstetrics & Gynecology
DX: Z34.91 Encounter for supervision of normal pregnancy, unspecified, first trimester (principal); Z3A.09 9 weeks gestation of pregnancy
CPT/HCPCS: 76817

== ENCOUNTER → 2022-08-22 | Outpatient (CLI) | payer OTHER, SELFPAY ==
[2022-08-22 16:52] LABS: Absolute Lymphocyte Count 1.57 X10^3/uL (0.83-4.51); Absolute Neutrophil Count 3.4 X10^3/uL (2.0-7.7); Basophil# 0.02 X10^3/uL; Basophil% 0.4 % (0-1); Eosinophil# 0.08 X10^3/uL; Eosinophils% 1.5 % (0-5); Hematocrit 38.4 % (37-47); Lymphocyte # 1.57 X10^3/ul (0.83-4.51); Lymphocyte % 29.1 % (19-41); Mean Corp Hgb Conc 31.3 g/dL (32-36); Mean Corpuscular Hgb 28.4 pg (27.0-32.0); Mean Corpuscular Volume 90.8 fL (81-99); Mean Platelet Vol. 10.4 fl (6.2-12.0); Monocyte# 0.28 X10^3/uL; Monocyte% 5.2 % (0-10); NRBC Flagged by Analyzer 0 % (0-5); Neutrophil # 3.42 X10^3/uL (2.7-7.7); Neutrophil % 63.4 % (47-70); Platelet Count 194 K/mm3 (150-450); RBC Distribution Width CV 13.1 % (11.6-14.6); RBC Distribution Width SD 43.2 fl (35.1-43.9); Red Blood Count 4.23 M/mm3 (4.2-5.4); White Blood Count 5.4 K/mm3 (4.4-11.0)
[2022-08-22 18:10] LABS: HIV - WCH Non-Reactive (Nonreactive); Hepatitis B Surface Antigen Non-Reactive (Nonreactive); Hepatitis C Antibody Non-Reactive (Nonreactive); Rubella IgG Reactive (Nonreactive); Syphilis Antibodies Non-reactive
== END | disposition home or self-care (01) ==
LOC: LAB 16:26
PROVIDERS: PCP Family Medicine; Referring Provider Obstetrics & Gynecology; Visit Provider Obstetrics & Gynecology
DX: O09.90 Supervision of high risk pregnancy, unspecified, unspecified trimester (principal); Z3A.00 Weeks of gestation of pregnancy not specified
CPT/HCPCS: 36415; 85025; 86703; 86762; 86780; 86803; 86850; 86900; 86901; 87340

== ENCOUNTER → 2022-11-13 | Outpatient (CLI) | payer OTHER, SELFPAY ==
[2022-11-13 15:15] LABS: Glucose Challenge Gest 1H 50g 102 mg/dL (70-140)
[2022-11-13 15:43] LABS: HIV - WCH Non-Reactive (Nonreactive); Syphilis Antibodies Non-reactive
== END | disposition home or self-care (01) ==
PROVIDERS: PCP Family Medicine; Referring Provider Registered Nurse; Visit Provider Registered Nurse
DX: Z34.90 Encounter for supervision of normal pregnancy, unspecified, unspecified trimester (principal)
CPT/HCPCS: 36415; 82950; 86703; 86780

== ENCOUNTER → 2023-01-15 | Outpatient (CLI) | payer OTHER, SELFPAY ==
--- NOTE | 2023-01-15 12:18 | US_ITS ---
STUDY: SECOND AND THIRD TRIMESTER OBSTETRICAL ULTRASOUND - LIMITED REASON FOR EXAM: Female, 37 years old . growth. LMP: May 08, 2022. PRIOR ULTRASOUND: Comparison is made with prior study dated July 09, 2022. TECHNIQUE: Transabdominal TECHNICAL QUALITY: Adequate. FINDINGS: There is a single intrauterine fetus. The fetus is in a cephalic presentation. There is demonstrated cardiac activity with a heart rate of 130 bpm. There is a normal amniotic fluid volume. The largest amniotic fluid pocket measures 7.75 cm. The amniotic fluid index (NHUNG) is 19.3 cm. The placenta is fundal and posterior in location. There are Grade 1 placental changes. The cervical length was not measured due to the head position. BIOMETRY: BPD: 8.94 cm: 36 weeks, 1 days HC: 32.4 cm: 36 weeks, 5 days AC: 32.43 cm: 36 weeks, 2 days FL: 6.86 cm: 35 weeks, 2 days Age by LMP: 36 weeks, 0 days. VERONICA by LMP: February 12, 2023. age by prior US: 36 weeks, 0 days. VERONICA by prior US: February 12, 2023. age by current US: 36 weeks, 2 days. VERONICA by current US: February 10, 2023. Estimated weight: 2862 grams, +/- 429 grams, 55 percentile. US/OB Limited With Biometrics IMPRESSION: Single live uterine gestation with mean gestational age of 36 weeks. The measurements obtained today fall within the normal expected range. Electronically Signed: Modesto Huizar MD at 13:58 EDT ,
== END | disposition home or self-care (01) ==
PROVIDERS: PCP Family Medicine; Referring Provider Obstetrics & Gynecology; Visit Provider Obstetrics & Gynecology
DX: O09.529 Supervision of elderly multigravida, unspecified trimester (principal); Z3A.34 34 weeks gestation of pregnancy
CPT/HCPCS: 76816; 87077; 87081; 87186

== ENCOUNTER 2023-02-11 19:13 | Inpatient (IN) | payer OTHER, SELFPAY ==
[2023-02-11 19:36] VITALS: BP 127/82; PULSE 71; TEMP 36.9
[2023-02-11 19:37] VITALS: PULSE 68; O2SAT 98
[2023-02-11] MEDS: Lactated Ringers 1,000 ML 50 ML IV (19:40)
[2023-02-11 19:49] VITALS: BMI 29.7
[2023-02-11 19:55] LABS: Absolute Neutrophil Count 3.9 X10^3/uL (2.0-7.7); Basophil# 0.01 X10^3/uL; Basophil% 0.2 % (0-1); Eosinophil# 0.03 X10^3/uL; Eosinophils% 0.5 % (0-5); Hematocrit 31.7 % (37-47); Hemoglobin 10.3 g/dL (12.0-15.0); Lymphocyte % 21.6 % (19-41); Mean Corp Hgb Conc 32.5 g/dL (32-36); Mean Corpuscular Hgb 28.9 pg (27.0-32.0); Mean Corpuscular Volume 88.8 fL (81-99); Mean Platelet Vol. 11.9 fl (6.2-12.0); Monocyte% 7.2 % (0-10); NRBC Flagged by Analyzer 0 % (0-5); Neutrophil % 70.1 % (47-70); Platelet Count 124 K/mm3 (150-450); RBC Distribution Width CV 13.4 % (11.6-14.6); RBC Distribution Width SD 43.6 fl (35.1-43.9); Red Blood Count 3.57 M/mm3 (4.2-5.4); White Blood Count 5.6 K/mm3 (4.4-11.0)
[2023-02-11 20:34] LABS: Syphilis Antibodies Non-reactive
[2023-02-11] MEDS: miSOPROStol 25 MCG TABLET VAGINAL (20:45)
[2023-02-11] MEDS: Penicillin G Pot 5,000,000 UNITS in 0.9% Normal Saline (100mL MB+) 100 ML 150 UNITS IV (20:55)
[2023-02-11 21:36] VITALS: BP 125/81; PULSE 76; TEMP 36.2; O2SAT 98
[2023-02-12] VITALS (38 sets, daily range): BP systolic 91–147; BP diastolic 55–94; PULSE 53–202; RESP 16; TEMP 36.3–36.9; O2SAT 81–99
[2023-02-12] MEDS: Acetaminophen 500 MG Tablet PO ×2 (00:51→14:03)
[2023-02-12] MEDS: Penicillin G 3,000,000 Units 50 ML 100 UNITS IV ×3 (01:12→10:59)
[2023-02-12] MEDS: Oxytocin 15 Units/NS 250ml 15 UNITS/250 ML IV.SOLN IV (06:13)
[2023-02-12] MEDS: 0.9% Normal Saline Single 100 ML IV.SOLN. INTRA-UTER (07:43)
[2023-02-12] MEDS: LACTATED RINGERS 500 ML 999 ML IV (07:53)
[2023-02-12] MEDS: fentaNYL-bupivacaine (epidural) 100 ML BAG EPIDURAL (08:35)
[2023-02-12] MEDS: Lactated Ringers 1,000 ML 200 ML IV (09:24)
[2023-02-12] MEDS: Amnioinfusion- 0.9% NS 1,000 ML IV.SOLN. 100 ML INTRA-UTER (10:00)
[2023-02-12] MEDS: Oxytocin 15 Units/NS 250ml 15 UNITS/250 ML IV.SOLN 83 UNITS IV (13:46)
--- NOTE | 2023-02-12 14:01 | HP.PCM.OB_ITS ---
HPI - General General Date of Admission: 02/11/23 HPI Narrative LANI STARR, is a 37 F who presents for IOL secondary to AMA. she denies any vb lof admits good fm n oregular ctx Maternal Data Information VERONICA Calculator Estimated Delivery Date Method Current WG Current Estimate 02/12/23 Ultrasound #1 40w 0d Other Estimates 01/18/23 LMP (Certain) 43w 4d PFSH PFSH Medical History Patient denies medical problems (spontaneous vaginal delivery) Home Medications vits,calcium no.78-iron fumarate-folic acid 29 mg-1 mg tablet (Prenatabs FA) 1 tab PO DAILY 03/21/15 [History Last Taken 02/09/23 20:00] Allergy/AdvReac Type Severity Reaction Status Date / Time No Known Allergies Allergy Verified 02/11/23 19:46 Family History Father Hypertension Grandfather Cancer Heart disease Diabetes Grandmother Cancer Breast cancer Aunt Breast cancer Surgical History [place] teeth removed Social History adopted: No household members: spouse and children number of children: 4 current occupational status: employed current occupation: [employer] current occupational exposures/hazards: No pets and animals: Yes pets and animals: dog(s) history of recent travel: No sexually active: Yes Smoking Status: Never smoker alcohol intake: never substance use type: does not use caffeine: Yes Type: coffee Number of servings: 2 seatbelt use: always do you feel safe at home: Yes additional social history: stephon History 5 Elective abortions 0 Hx Para 4 Spontaneous abortions 0 Hx # Term Pregnancies 4 Ectopic pregnancies 0 Hx # Pregnancies 0 Multiple births 0 # of living children 4 Past Pregnancies Del. Date Name GA/Weeks Outcome Route Bth Weight Gen Labor Lgth Anesthesia Del Locatn Provider FOB 03/21/15 Brock 40 live - full term 7lb3oz Female 9 epid ural Silvana Beebe Stephon 08/22/16 Wall 40 live - full term vacuum 7lb6oz Male 20 epidural Silvana Beebe [facility] 08/29/18 Patel 41 live - full term 7lb Male 6 epidur al Silvanaspike Abdi [facility] 09/29/20 Kyle 40 live - full term 7.6 Male [facility] Visit Details Expected Delivery Route/Plan Labor Preferences- CB/BF classes: Declines labor support person: Stephon labor intervention preferences: [] pain management options preferred: epidural cut cord/dad catch: cut cord : wants PP control planned: micronor discussed possible routes of delivery and associated risks: [] special requests: [] Plans Covid status: discussed Flu vaccine: discussed Tdap vaccine: discussed and declines Rhogam: NA LARC form signed: done Problem list reviewed and updated with the most current plan of care details and appropriate orders placed. Relevant counseling for the gestational age provided. Continue routine care and follow up unless otherwise noted in visit notes/problem list details OB Flowsheet Initial Weight: Not Recorded Date -?-?-?-?-?-?-?-?-?-?-?-?- EGA Weight BP Urine Prot -?-?-?-?-?-?-?-?-?-?-?-?- Glucose FHR FuHt Pres Dilation -?-?-?-?-?-?-?-?-?-?-?-?- Effaced St Visit Note 06/19/22 -?-?-?--?-?-?-?-?-?-?-?-?- 6w 0d 187 lb 115/80 -?-?-?-?-?-?-?-?-?-?-?-?- -?-?-?-?-?-?-?-?-?-?-?-?- SM- CRL SM- CRL 2 mm with GS measuri ng 13mm not cons with lmp 07/18/22 -?-?-?-?-?-?-?-?-?-?-?-?- 10w 1d 190 lb 123/77 -?-?-?-?-?-?-?-?-?-?-?-?- 160 -?-?-?-?-?-?-?-?-?-?-?-?- SM- no vb crampi ng 08/22/22 -?-?-?-?-?-?-?-?-?-?-?-?- 15w 1d 196 lb 122/74 Negative -?-?-?-?-?-?-?-?-?-?-?-?- Negative 155 -?-?-?-?-?-?--?-?-?-?-?-?- SM- no vb crampi ng 09/18/22 -?-?-?-?-?-?-?-?-?-?-?-?- 19w 0d 197 lb 2 oz 110/72 Nega tive -?-?-?-?-?-?-?-?-?-?-?-?- Negative 150 -?-?-?-?-?-?-?-?-?-?-?-?- KW-+FM. no vb/lo f/ctx. anatomy nl. Declines AFP 10/17/22 -?-?-?-?-?-?-?-?-?-?-?-?- 23w 1d 200 lb 4 oz 114/72 -?-?-?-?-?-?-?-?-?-?-?-?- 140 23 -?-?-?-?-?-?-?-?-?-?-?-?- LC- no vb/crampi ng. normal anatomy. no concerns. 11/13/22 -?-?-?-?-?-?-?-?-?-?-?-?- 27w 0d 203 lb 2 oz 117/71 Nega tive -?-?-?-?-?-?-?-?-?-?-?-?- Negative 140 28 -?-?-?-?-?-?-?-?-?-?-?-?- KW- + FM. no vb/ lof/ctx. no concerns today. 12/04/22 -?-?-?-?-?-?-?-?-?-?-?-?- 30w 0d 201 lb 118/78 Negative -?-?-?-?-?-?-?-?-?-?-?-?- Negative 130 30 -?-?-?-?-?-?-?-?-?-?-?-?- KW-no vb, lof,ct x. good fm. [facility] today. declines flu and tdap. 12/19/22 -?-?-?-?-?-?-?-?-?-?-?-?- 32w 1d 199 lb 8 oz 116/74 Nega tive -?-?-?-?-?-?-?-?-?-?--?-?- Negative 128 33 -?-?-?-?-?-?-?-?-?-?-?-?- LC-no lof/ctx/vb . good fm. no concerns. 01/02/23 -?-?-?-?-?-?-?-?-?-?-?-?- 34w 1d 201 lb 8 oz 115/77 Nega tive -?-?-?-?-?-?-?-?-?-?-?-?- Negative 140 34 -?-?-?-?-?-?-?-?-?-?-?-?- JV- no lof, vagi nal bleeding, or dec fm. has growth scan ordered at 36 weeks for ama. 01/15/23 -?-?-?-?-?-?-?-?-?-?-?-?- 36w 0d 202 lb 114/80 -?-?-?-?-?-?-?-?-?-?-?-?- 140 35 Cephalic 0.5 -?-?-?-?-?-?-?-?-?-?-?-?- SM- no vb lof go od fm n oregular ctx gbs done 01/22/23 -?-?-?-?-?-?-?-?-?-?-?-?- 37w 0d 199 lb 6 oz 114/77 Nega tive -?-?-?-?-?-?-?--?-?-?-?-?- Negative 140 37 Cephalic -?-?-?-?-?-?-?-?-?-?-?-?- SM- no vb lof go od fm no regualr ctx 01/29/23 -?-?-?-?-?-?-?-?-?-?-?-?- 38w 0d 203 lb 4 oz 112/78 -?-?-?-?-?-?-?-?-?-?-?-?- 140 37 Cephalic 0.5 -?-?-?-?-?-?-?-?-?-?-?-?- SM- no vb lof go od fm n oreuglar ctx 02/04/23 -?-?-?-?-?-?-?-?-?-?-?-?- 38w 6d 202 lb 2 oz 124/82 -?-?-?-?-?-?-?-?-?-?-?-?- 120 35 1 -?-?-?-?-?-?-?-?-?-?-?-?- 20 SM- no v b lof good fm no regular ctx, low FH- bedside NHUNG over 12 cm NST FHR Rate Baby A Baseline: 130 Variability:: Moderate Accelerations:: 15 x 15 Decelerations:: None NST Reactive:: Yes FHR Category:: Category I Uterine Activity:: irregular ROS Constitutional Constitutional: Reports systems reviewed and no addt'l complaints, except as documented Eyes Eyes: Denies change in vision ENT HEENT: Reports systems reviewed and no addt'l complaints, except as documented; Denies headache(s) Cardiovascular Cardiovascular: Reports systems reviewed and no addt'l complaints, except as documented; Denies chest pain or dyspnea Respiratory/Chest Respiratory/Chest: Reports systems reviewed and no addt'l complaints, except as documented Gastrointestinal Gastrointestinal: Reports systems reviewed and no addt'l complaints, except as documented; Denies abdominal pain Genitourinary Genitourinary: Reports systems reviewed and no addt'l complaints, except as documented, contractions Details: present (irregular) and movement Details: present; Denies dysuria or genital lesions Musculoskeletal Musculoskeletal: Reports systems reviewed and no addt'l complaints, except as documented Neurologic Neurologic: Reports systems reviewed and no addt'l complaints, except as documented Endocrine Endocrinology: Reports systems reviewed and no addt'l complaints, except as documented Vital Signs Vital Signs Vital Signs: 02/11/23 19:36 02/11/23 19:36 02/11/23 19:37 Temperature Temperature Source Pulse Rate 71 68 Blood Pressure 127/82 H BP Systolic 127 BP Diastolic 82 Pulse Ox 02/11/23 19:37 02/11/23 19:36 02/11/23 21:36 Temperature 98.4 F Temperature Source Pulse Rate Blood Pressure 125/81 H BP Systolic 125 BP Diastolic 81 Pulse Ox 98 02/11/23 21:36 02/11/23 21:36 02/11/23 21:36 Temperature Temperature Source Temporal Pulse Rate 76 Blood Pressure BP Systolic BP Diastolic Pulse Ox 98 02/11/23 21:36 02/12/23 00:47 02/12/23 00:47 Temperature 97.2 F L Temperature Source Pulse Rate 64 Blood Pressure 120/78 BP Systolic 120 BP Diastolic 78 Pulse Ox 02/12/23 00:47 02/12/23 00:47 02/12/23 00:47 Temperature 97.7 F L Temperature Source Temporal Pulse Rate Blood Pressure BP Systolic BP Diastolic Pulse Ox 97 02/12/23 04:48 02/12/23 04:48 02/12/23 04:48 Temperature Temperature Source Pulse Rate 67 Blood Pressure 119/72 BP Systolic 119 BP Diastolic 72 Pulse Ox 96 02/12/23 04:48 02/12/23 04:48 02/12/23 06:15 Temperature 97.3 F L Temperature Source Temporal Temporal Pulse Rate Blood Pressure BP Systolic BP Diastolic Pulse Ox 02/12/23 06:15 02/12/23 06:16 02/12/23 06:16 Temperature
--- NOTE | 2023-02-12 14:01 | PCM.HP.OB ---
HPI - General General Date of Admission: 02/11/23 HPI Narrative LANI STARR, is a 37 F who presents for IOL secondary to AMA. she denies any vb lof admits good fm n oregular ctx Maternal Data Information VERONICA Calculator Estimated Delivery Date Method Current WG Current Estimate 02/12/23 Ultrasound #1 40w 0d Other Estimates 01/18/23 LMP (Certain) 43w 4d PFSH PFSH Medical History Patient denies medical problems (spontaneous vaginal delivery) Home Medications vits,calcium no.78-iron fumarate-folic acid 29 mg-1 mg tablet (Prenatabs FA) 1 tab PO DAILY 03/21/15 [History Last Taken 02/09/23 20:00] Allergy/AdvReac Type Severity Reaction Status Date / Time No Known Allergies Allergy Verified 02/11/23 19:46 Family History Father Hypertension Grandfather Cancer Heart disease Diabetes Grandmother Cancer Breast cancer Aunt Breast cancer Surgical History [place] teeth removed Social History adopted: No household members: spouse and children number of children: 4 current occupational status: employed current occupation: [employer] current occupational exposures/hazards: No pets and animals: Yes pets and animals: dog(s) history of recent travel: No sexually active: Yes Smoking Status: Never smoker alcohol intake: never substance use type: does not use caffeine: Yes Type: coffee Number of servings: 2 seatbelt use: always do you feel safe at home: Yes additional social history: stephon History 5 Elective abortions 0 Hx Para 4 Spontaneous abortions 0 Hx # Term Pregnancies 4 Ectopic pregnancies 0 Hx # Pregnancies 0 Multiple births 0 # of living children 4 Past Pregnancies Del. Date Name GA/Weeks Outcome Route Bth Weight Gen Labor Lgth Anesthesia Del Locatn Provider FOB 03/21/15 Brock 40 live - full term 7lb3oz Female 9 epidural [place] Abiel Stephon 08/22/16 Wall 40 live - full term vacuum 7lb6oz Male 20 epidural Silvana Abiel Stephon 08/29/18 Patel 41 live - full term 7lb Male 6 epidural Silvana Abdi Stephon 09/29/20 Kyle 40 live - full term 7.6 Male [facility] Visit Details Expected Delivery Route/Plan Labor Preferences- CB/BF classes: Declines labor support person: Stephon labor intervention preferences: [] pain management options preferred: epidural cut cord/dad catch: cut cord : wants PP control planned: micronor discussed possible routes of delivery and associated risks: [] special requests: [] Plans Covid status: discussed Flu vaccine: discussed Tdap vaccine: discussed and declines Rhogam: NA LARC form signed: done Problem list reviewed and updated with the most current plan of care details and appropriate orders placed. Relevant counseling for the gestational age provided. Continue routine care and follow up unless otherwise noted in visit notes/problem list details OB Flowsheet Initial Weight: Not Recorded Date <del>?</del> EGA Weight BP Urine Prot <del>?</del> Glucose FHR FuHt Pres Dilation <del>?</del> Effaced St Visit Note 06/19/22 <del>?</del> 6w 0d 187 lb 115/80 <del>?</del> <del>?</del> SM- CRL SM- CRL 2 mm with GS measuring 13mm not cons with lmp 07/18/22 <del>?</del> 10w 1d 190 lb 123/77 <del>?</del> 160 <del>?</del> SM- no vb cramping 08/22/22 <del>?</del> 15w 1d 196 lb 122/74 Negative <del>?</del> Negative 155 <del>?</del> SM- no vb cramping 09/18/22 <del>?</del> 19w 0d 197 lb 2 oz 110/72 Negative <del>?</del> Negative 150 <del>?</del> KW-+FM. no vb/lof/ctx. anatomy nl. Declines AFP 10/17/22 <del>?</del> 23w 1d 200 lb 4 oz 114/72 <del>?</del> 140 23 <del>?</del> LC- no vb/cramping. normal anatomy. no concerns. 11/13/22 <del>?</del> 27w 0d 203 lb 2 oz 117/71 Negative <del>?</del> Negative 140 28 <del>?</del> KW- + FM. no vb/lof/ctx. no concerns today. 12/04/22 <del>?</del> 30w 0d 201 lb 118/78 Negative <del>?</del> Negative 130 30 <del>?</del> KW-no vb, lof,ctx. good fm. LARC today. declines flu and tdap. 12/19/22 <del>?</del> 32w 1d 199 lb 8 oz 116/74 Negative <del>?</del> Negative 128 33 <del>?</del> LC-no lof/ctx/vb. good fm. no concerns. 01/02/23 <del>?</del> 34w 1d 201 lb 8 oz 115/77 Negative <del>?</del> Negative 140 34 <del>?</del> JV- no lof, vaginal bleeding, or dec fm. has growth scan ordered at 36 weeks for ama. 01/15/23 <del>?</del> 36w 0d 202 lb 114/80 <del>?</del> 140 35 Cephalic 0.5 <del>?</del> SM- no vb lof good fm n oregular ctx gbs done 01/22/23 <del>?</del> 37w 0d 199 lb 6 oz 114/77 Negative <del>?</del> Negative 140 37 Cephalic <del>?</del> SM- no vb lof good fm no regualr ctx 01/29/23 <del>?</del> 38w 0d 203 lb 4 oz 112/78 <del>?</del> 140 37 Cephalic 0.5 <del>?</del> SM- no vb lof good fm n oreuglar ctx 02/04/23 <del>?</del> 38w 6d 202 lb 2 oz 124/82 <del>?</del> 120 35 1 <del>?</del> 20 SM- no vb lof good fm no regular ctx, low FH- bedside NHUNG over 12 cm NST FHR Rate Baby A Baseline: 130 Variability:: Moderate Accelerations:: 15 x 15 Decelerations:: None NST Reactive:: Yes FHR Category:: Category I Uterine Activity:: irregular ROS Constitutional Constitutional: Reports systems reviewed and no addt'l complaints, except as documented Eyes Eyes: Denies change in vision ENT HEENT: Reports systems reviewed and no addt'l complaints, except as documented; Denies headache(s) Cardiovascular Cardiovascular: Reports systems reviewed and no addt'l complaints, except as documented; Denies chest pain or dyspnea Respiratory/Chest Respiratory/Chest: Reports systems reviewed and no addt'l complaints, except as documented Gastrointestinal Gastrointestinal: Reports systems reviewed and no addt'l complaints, except as documented; Denies abdominal pain Genitourinary Genitourinary: Reports systems reviewed and no addt'l complaints, except as documented, contractions Details: present (irregular) and movement Details: present; Denies dysuria or genital lesions Musculoskeletal Musculoskeletal: Reports systems reviewed and no addt'l complaints, except as documented Neurologic Neurologic: Reports systems reviewed and no addt'l complaints, except as documented Endocrine Endocrinology: Reports systems reviewed and no addt'l complaints, except as documented Vital Signs Vital Signs Vital Signs: 02/11/23 19:36 02/11/23 19:36 02/11/23 19:37 Temperature Temperature Source Pulse Rate 71 68 Blood Pressure 127/82 H BP Systolic 127 BP Diastolic 82 Pulse Ox 02/11/23 19:37 02/11/23 19:36 02/11/23 21:36 Temperature 98.4 F Temperature Source Pulse Rate Blood Pressure 125/81 H BP Systolic 125 BP Diastolic 81 Pulse Ox 98 02/11/23 21:36 02/11/23 21:36 02/11/23 21:36 Temperature Temperature Source Temporal Pulse Rate 76 Blood Pressure BP Systolic BP Diastolic Pulse Ox 98 02/11/23 21:36 02/12/23 00:47 02/12/23 00:47 Temperature 97.2 F L Temperature Source Pulse Rate 64 Blood Pressure 120/78 BP Systolic 120 BP Diastolic 78 Pulse Ox 02/12/23 00:47 02/12/23 00:47 02/12/23 00:47 Temperature 97.7 F L Temperature Source Temporal Pulse Rate Blood Pressure BP Systolic BP Diastolic Pulse Ox 97 02/12/23 04:48 02/12/23 04:48 02/12/23 04:48 Temperature Temperature Source Pulse Rate 67 Blood Pressure 119/72 BP Systolic 119 BP Diastolic 72 Pulse Ox 96 02/12/23 04:48 02/12/23 04:48 02/12/23 06:15 Temperature 97.3 F L Temperature Source Temporal Temporal Pulse Rate Blood Pressure BP Systolic BP Diastolic Pulse Ox 02/12/23 06:15 02/12/23 06:16 02/12/23 06:16 Temperature Temperature Source Pulse Rate 59 L Blood Pressure 135/81 H BP Systolic 135 BP Diastolic 81 Pulse Ox 98 02/12/23 06:15 02/12/23 07:34 02/12/23 07:34 Temperature 97.6 F L Temperature Source Pulse Rate 60 Blood Pressure 131/79 H BP Systolic 131 BP Diastolic 79 Pulse Ox 02/12/23 08:16 02/12/23 08:16 02/12/23 08:20 Temperature Temperature Source Pulse Rate 60 Blood Pressure 136/82 H BP Systolic 136 BP Diastolic 82 Pulse Ox 99 02/12/23 08:21 02/12/23 08:21 02/12/23 08:26 Temperature Temperature Source Pulse Rate 74 Blood Pressure 134/82 H BP Systolic 134 BP Diastolic 82 Pulse Ox 99 02/12/23 08:26 02/12/23 08:26 02/12/23 08:30 Temperature Temperature Source Pulse Rate 64 Blood Pressure 119/76 BP Systolic 119 BP Diastolic 76 Pulse Ox 99 02/12/23 08:30 02/12/23 08:36 02/12/23 08:36 Temperature Temperature Source Pulse Rate 64 68 Blood Pressure 115/71 BP Systolic 115 BP Diastolic 71 Pulse Ox 02/12/23 08:40 02/12/23 08:40 02/12/23 08:46 Temperature Temperature Source Pulse Rate 67 Blood Pressure 116/74 111/55 L BP Systolic 116 111 BP Diastolic 74 55 Pulse Ox 02/12/23 08:46 02/12/23 08:51 02/12/23 08:51 Temperature Temperature Source Pulse Rate 63 55 L Blood Pressure 98/56 L BP Systolic 98 BP Diastolic 56 Pulse Ox 02/12/23 09:03 02/12/23 09:03 02/12/23 09:07 Temperature Temperature Source Pulse Rate 202 H 58 L Blood Pressure BP Systolic BP Diastolic Pulse Ox 81 02/12/23 09:07 02/12/23 09:01 02/12/23 09:01 Temperature 97.6 F L Temperature Source Temporal Pulse Rate Blood Pressure BP Systolic BP Diastolic Pulse Ox 97 02/12/23 09:09 02/12/23 09:09 02/12/23 09:12 Temperature Temperature Source Pulse Rate 56 L 62 Blood Pressure 91/55 L BP Systolic 91 BP Diastolic 55 Pulse Ox 02/12/23 09:12 02/12/23 09:23 02/12/23 09:23 Temperature Temperature Source Pulse Rate 57 L Blood Pressure 107/66 BP Systolic 107 BP Diastolic 66 Pulse Ox 98 02/12/23 10:23 02/12/23 10:23 02/12/23 10:53 Temperature Temperature Source Pulse Rate 54 L Blood Pressure 120/69 109/63 BP Systolic 120 109 BP Diastolic 69 63 Pulse Ox 02/12/23 10:53 02/12/23 11:23 02/12/23 11:23 Temperature Temperature Source Pulse Rate 54 L 57 L Blood Pressure 113/69 BP Systolic 113 BP Diastolic 69 Pulse Ox 02/12/23 12:56 02/12/23 12:56 02/12/23 12:57 Temperature Temperature Source Temporal Pulse Rate 56 L Blood Pressure 147/79 H BP Systolic 147 BP Diastolic 79 Pulse Ox 02/12/23 12:57 02/12/23 13:11 02/12/23 13:11 Temperature 98.4 F Temperature Source Pulse Rate 56 L Blood Pressure 132/76 H BP Systolic 132 BP Diastolic 76 Pulse Ox 02/12/23 13:27 02/12/23 13:27 02/12/23 13:29 Temperature Temperature Source Pulse Rate 60 Blood Pressure 145/94 H 127/60 H BP Systolic 145 127 BP Diastolic 94 60 Pulse Ox 02/12/23 13:29 02/12/23 13:41 02/12/23 13:41 Temperature Temperature Source Pulse Rate 59 L 53 L Blood Pressure 128/80 H BP Systolic 128 BP Diastolic 80 Pulse Ox 02/12/23 13:56 02/12/23 13:56 Temperature Temperature Source Pulse Rate 55 L Blood Pressure 119/74 BP Systolic 119 BP Diastolic 74 Pulse Ox Weight Weight: 201 lb 0.985 oz Body Mass Index (BMI) 29.7 Physical Exam Const alert, oriented x3, no apparent distress and healthy appearing HEENT normocephalic and moist oral mucous membranes Head and Scalp: atraumatic Neck full ROM, no lymphadenopathy, supple and thyroid normal General: trachea midline Lymph Lymphatic: no lymphadenopathy noted Chest inspection of chest normal Resp normal respiratory effort Cardio regular rate GI normal to inspection, nondistended, normoactive bowel sounds, soft to palpation and non-tender Inspection: gravid external exam normal Manual OB Exam: estimated gestational size appropriate, presentation cephalic, dilated, effaced and station Extremity normal to inspection General Extremity: Negative for edema Skin no rashes or lesions noted Neuro no focal motor deficits and deep tendon reflexes 2+ bilaterally Motor Exam: strength 5/5 throughout and clonus absent Psych mental status grossly normal Labs Labs Labs: Blood Type O POSITIVE Antibody Screen NEGATIVE Hct 31.7 % (37-47) L Hgb 10.3 g/dL (12.0-15.0) L Obstetrics Ultrasound Syphilis Total Ab Non-reactive Rubella IgG Antibody Reactive (Nonreactive) Hep Bs Antigen Non-Reactive (Nonreactive) Hepatitis C Antibody Non-Reactive (Nonreactive) Hepatitis C Ab (EIA) <0.1 s/co ratio (0.0-0.9) Chlamydia DNA (TIFFANY) Negative (Negative) N.gonorrhoeae DNA (TIFFANY) Negative (Negative) HIV 1&2 Antibody Non-Reactive (Nonreactive) Glucose 1 Hr 50 gm 102 mg/dL (70-140) Group B Strep DNA POSITIVE (Negative) H Rhogam given: No Miscellaneous Test . Assessment & Plan (1) Group B streptococcal infection during : COMMENT: Treat with PCN during labor unless allergic (2) AMA (advanced maternal age) multigravida 35+: COMMENT: genetic counseling provided. plan 36 week growth scan delivery by 40 weeks- IOL scheduled for thursday night cytotec (3) Supervision of high risk , antepartum: COMMENT: PRR VERONICA 02/12/23 boy PC Duke Gutiérrez Knox, Kyle Stephon (4) : QUALIFIERS: Weeks of gestation: 38 weeks Qualified Code(s): Z3A.38 - 38 weeks gestation of COMMENT: nl anatomy, genetic counseling provided, declined carrier and NIPT
--- NOTE | 2023-02-12 17:53 | OP.PCM_ITS ---
Assessment & Plan (1) Group B streptococcal infection during : COMMENT: Treat with PCN during labor unless allergic (2) AMA (advanced maternal age) multigravida 35+: COMMENT: genetic counseling provided. plan 36 week growth scan delivery by 40 weeks- IOL scheduled for thursday night cytotec (3) Supervision of high risk , antepartum: COMMENT: PRR VERONICA 02/12/23 boy ABDIAS Gutiérrez, Jorge Wall, Kyle Stephon (4) : QUALIFIERS: Weeks of gestation: 38 weeks Qualified Code(s): Z3A.38 - 38 weeks gestation of COMMENT: nl anatomy, genetic counseling provided, declined carrier and NIPT (5) Vaginal delivery: COMMENT: SM IOL ama boy Lennie Maternal Data Information VERONICA Calculator Estimated Delivery Date Method Current WG Current Estimate 02/12/23 Ultrasound #1 40w 0d Other Estimates 01/18/23 LMP (Certain) 43w 4d Vaginal Delivery Operative Information Date of Procedure: 02/12/23 Pre-Operative Diagnosis: see a/p diagnoses Post-Operative Diagnosis: same Surgery / Procedure Performed: Spontaneous Vaginal Delivery Type of Anesthesia: Epidural Special Medications: none Estimated Blood Loss: 100 Fluids Replaced: crystalloid Findings Description of Procedure: Patient began pushing and delivered the head in the MAXIMILIAN presentation. The head was delivered atraumatically . The anterior and posterior shoulders delivered without complication followed by the rest of the and the was placed on the maternal abdomen. Delayed cord clamping was employed for approxim ately 60 seconds. Cord was clamped and cut and gentle traction was applied to the cord and the placenta delivered spontaneously immediately following it was noted to be intact with three-vessel cord. The perineum and vagina were inspected and noted to have no laceration. EBL was 100. Patient and tolerated delivery well. Amniotic Fluid Description: Clear Placental Delivery Description: Spontaneous Placenta Disposition: [facility] Cord Vessel Description: 3 Vessels Cord Entanglement: None Delayed Cord Clamping: Yes Post Vaginal Delivery Medications Given After Delivery: IV Pitocin Episiotomy Description: None Complication Complications: None Procedures Urinary/Genital [id number]: [id number] Vaginal Delivery [facility]
--- NOTE | 2023-02-12 17:55 | DCINST_ITS ---
Discharge Instructions Diet Discharge Diet: No restrictions Activity Discharge Activity: Return to Normal Activity, May Not Drive (while taking narcotic pain medications.) and May Shower May resume sexual activity in: 4-6 weeks Dressing / Incision Call your doctor if your incision/area has: Continuous Slow Oozing, Sudden Increased Bleeding, Increased Pain/ Swelling, Increased Redness and Foul Smelling Discharge Follow Up Care Please Follow Up With: Radha Abdi MD When: Call [phone] to make an appointment with your doctor in 6 weeks. If you had elevated blood pressure or 4th degree laceration, you will need to be seen in 2 weeks. Test Results: Test results from this visit will be discussed in further detail at your follow- up appointment, if applicable. Discharge Plan Admission Admit Date/Time: 02/11/23 19:13 Attending Provider: Radha Abdi Primary Care Provider: Emeli Ponce Discharge Orders/Prescriptions Prescriptions: No Action Prenatabs FA 1 TABLET tablet 1 tab PO DAILY Referrals / Follow Up: Emeli Ponce MD [Primary Care Provider] - Disposition Disposition (needs filled in before D/C Order can be placed): Home, Self Care
[2023-02-12] MEDS: Acetaminophen 500 MG Tablet 1000 MG PO (20:22)
[2023-02-13 00:12] VITALS: BP 107/57; PULSE 68; RESP 16; TEMP 36.1
[2023-02-13 00:13] VITALS: BP 107/57; PULSE 68
[2023-02-13 03:38] VITALS: BP 115/59; PULSE 67; RESP 16; TEMP 36.3
--- NOTE | 2023-02-13 08:49 | PCM.PN.OB ---
Subjective Subjective Patient doing well without complaints. Tolerating PO. Ambulating and voiding without difficulty. Feeding well. Denies chest pain, shortness of breath, calf pain/swelling, fevers, chills, lightheadedness. Objective Data Objective Data Vital Signs: Vital Signs Temp Pulse Resp BP Pulse Ox O2 Del Method 97.4 F L 67 16 115/59 L 98 Room Air 02/13/23 03:38 02/13/23 03:38 02/13/23 03:38 02/13/23 03:38 02/12/23 09:12 02/13/23 03:38 Oxygen Delivery Method Room Air Weight: 201 lb 0.985 oz Body Mass Index (BMI) 29.7 Intake & Output: Intake and Output for Last 24 Hours 02/11/23 02/12/23 02/13/23 23:59 23:59 23:59 Intake Total 105 / 105 2611.29 / 2611.29 Output Total 1200 / 1200 Balance 105 / 105 1411.29 / 1411.29 Lab / Micro Data 02/11/23 19:40 Physical Exam Const alert and no apparent distress Resp normal respiratory effort and no retractions GI normal to inspection, nondistended, normoactive bowel sounds Uterus Palpation: uterus fundus firm Extremity normal to inspection and no calf tenderness Skin no rashes or lesions noted Psych mental status grossly normal Assessment & Plan (1) Vaginal delivery: COMMENT: VINITA IOL ambruno [place] PLAN: s/p PPD # 1. routine post delivery care 2. breast feeding- support given 3. rh positive 4. rubella immune 5. plan d/c home today after 24 hours
[2023-02-13] MEDS: Naproxen 500 MG Tablet PO (08:59)
[2023-02-13 09:00] VITALS: BP 116/69; PULSE 71; RESP 16; TEMP 36.7
[2023-02-13 09:01] VITALS: BP 116/69; PULSE 71
== END 2023-02-13 15:00 | disposition home or self-care (01) | DRG 807 ==
PROVIDERS: Obstetrics & Gynecology; Admitting Provider Obstetrics & Gynecology; PCP Family Medicine; Visit Provider Obstetrics & Gynecology
DX: O99.824 Streptococcus B carrier state complicating childbirth (principal); Z37.0 Single live birth; B95.1 Streptococcus, group B, as the cause of diseases classified elsewhere; Z3A.38 38 weeks gestation of pregnancy
CPT/HCPCS: 59025; 59050; 85025; 86780; 86850; 86900; 86901; 99221; J7030; J7120; G0378

== ENCOUNTER 2023-03-25 14:57 | Outpatient (CLI) | payer OTHER, SELFPAY ==
--- OUTSIDE RECORDS SUMMARY | 2023-03-25 15:22 | XMS RPT_ITS | CCD ---
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 Name Role Phone RAYSHAWN LEOMNS Admitting Unavailable RAYSHAWN LEMONS Attending Unavailable RAYSHAWN LEMONS Primary Care Unavailable LIZA PALOMINO Primary Care Unavailable CHETNA BARKLEY Attending Unavailable JU ROWLAND Referring UnavailMARTHA Lema Primary Care Unavailable FINN LEIJA Attending Unavailable MARTHA FRANK Primary Care Unavailable AMBAR DENTON Attending Unavailable RUBINA ROMERO Attending UnavailKELLI Canas Attending Unavailable MARTHA FRANK Primary Care Unavailable MARTHA FRANK Primary Care Unavailable JOHNNA SUTTON Attending Unavailable Problems Active Problems Problem Classification Problem Date Documented Da te Episodic/Chronic Headache; including migraine (1 source) Headache; including migraine; Translations: [Headache, unspecified] Onset: 02-18-2023 Immunizations and screening for infectious disease (1 source) Contact with and (suspected) exposure to other bacterial communicable diseases; Translations: [Contact with and (suspected) exposure to other bacterial communicable diseases] Onset: 02-25-2023 Episodic Other upper respiratory infections (2 sources) Acute pharyngitis, unspecified; Translations: [Acute upper respiratory infection, unspecified] Onset: 03-01-2022 Episodic Unclassified (1 source) Acute cough; Translations: [Acute cough] Onset: 03-01-2022 Past or Other Problems Problem Classification Problem Date Documented Da te Episodic/Chronic Other circulatory disease (1 source) Other specified symptoms and signs involving the circulatory and respiratory systems; Translations: [Other specified symptoms and signs involving the circulatory and respiratory systems] Onset: 03-01-2022 Episodic Other upper respiratory disease (1 source) Nasal congestion; Translations: [Nasal congestion] Onset: 03-01-2022 Episodic Results Test Name Value Interpretation Reference Range Facil ity Encounters Encounter Date Encounter Type Care Provider Facility Start: 03-19-2023 ambulatory MARTHA FRANK [facility] Start: 02-25-2023 End: 02-25-2023 ambulatory MARTHA FRANK [facility] Start: 02-18-2023 End: 02-18-2023 ambulatory KELLI DENTON [facility] Start: 09-11-2022 End: 09-11-2022 ambulatory JU ROWLAND [facility] Start: 03-01-2022 End: 03-01-2022 ambulatory URBINA ROMERO [facility] Start: 06-01-2018 End: 06-01-2018 Patient encounter procedure RAYSHAWN LEMONS [facility] Start: 05-29-2018 End: 05-29-2018 Emergency department patient visit LIZA PALOMINO Facility: Payers Date Payer Category Payer Unknown [id number] [id number] [id number] 1985 Unknown [id number] 2.16. [id number] 1987 Unknown [id number] 2.16. [id number] 1987 Unknown [id number] 2.16. [id number] 1987 Unknown [id number] 2.16. [id number] 1987 Unknown [id number] 2.16. [id number] Private Health Insurance [id number] Unknown [id number] Unknown [id number] 2.16.8 [id number] Unknown [id number] Summary Purpose Family History No Family History Records FoundNo Family History Records FoundNo Family History Records FoundNo Family History Records Found Advance Directives No Advanced Directives Records FoundNo Advanced Directives Records FoundNo Advanced Directives Records FoundNo Advanced Directives Records Found Additional Source Comments INFORMATION SOURCE (unrecogn ized section and content) DATE CREATED AUTHOR AUTHOR'S ORGANIZ ATION 06/04/2018 [facility] DATE CREATED AUTHOR AUTHOR'S ORGANIZ ATION 09/12/2022 [facility] DATE CREATED AUTHOR AUTHOR'S ORGANIZ ATION 02/27/2023 [facility] FOR RECORDS PERTAINING TO PATIENTS WHO ARE OR HAVE BEEN ENROLLED IN A CHEMICAL DEPENDENCY/SUBSTANCEABUSE PROGRAM, SOME INFORMATION MAY BE OMITTED. This clinical summary was aggregated from multiple sources. Caution should be exercised in using it in the provision of clinical care. This summary normalizes information from multiple sources, and as a consequence, information in this document may materially change the coding, format and clinical context of patient data. In addition, data may be omitted in some cases. CLINICAL DECISIONS SHOULD BE BASED ON THE PRIMARY CLINICAL RECORDS. [facility] [employer] provides no warranty or guarantee of the accuracy or completeness of information in this document.
[2023-03-25 16:02] LABS: NATERA MAILED SPECIMEN
== END 2023-03-25 23:59 | disposition home or self-care (01) ==
PROVIDERS: PCP Family Medicine; Referring Provider Obstetrics & Gynecology; Visit Provider Obstetrics & Gynecology
DX: Z80.3 Family history of malignant neoplasm of breast (principal)
CPT/HCPCS: 36415